=== PATIENT | male | born 1960 | race Caucasian/White ===

== ENCOUNTER 2021-05-18 08:55 | Inpatient (IN) | payer OTHER, SELFPAY ==
[2021-05-18] VITALS (14 sets, daily range): BP systolic 115–148; BP diastolic 82–102; PULSE 99–126; RESP 19–45; TEMP 36.6–36.8; O2SAT 85–96; BMI 31.1
--- NOTE | 2021-05-18 09:05 | XR_ITS ---
WS: [id number] Portable AP upright chest, 05/18/2021 Clinical Data: dyspnea/cough Comparison: None. Findings: Bilateral patchy opacities are seen in the lungs consistent with diffuse pneumonia. The hea rt is normal. No pneumothorax is present. No nodules, masses or effusions are noted. Monitor leads ar e on the chest wall. XR/XR chest 1V portable [id number] Impression: Bilateral patchy pulmonary opacities consistent with diffuse pneumonia.
--- NOTE | 2021-05-18 09:08 | W.ED.SOB ---
HPI - SOB/Dyspnea General: Chief Complaint: Shortness of Breath/Dyspnea Stated Complaint: lying in floor/ respiratory distress Time Seen by Provider: 05/18/21 09:04 History of Present Illness: HPI Narrative: 60-year-old male presents to the emergency room via EMS. Patient is in acute respiratory failure his sats on 15 L by nonrebreather when he first arrived. 85% they did improve shortly after he got here up to 90. He is tachycardic and tachypneic. He was found naked on the floor which is unlike him. He was confused and disoriented it is unknown how long he been down on the floor. 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 His sister who he lives with as well as his sister who works here are both stating they want him to be a no code. When asked the patient stated he did not want to be intubated. MD elicited complaint: shortness of breath Pertinent past history: COPD Onset (ago): day(s) Timing: constant Severity: severe Exacerbating factors: exertion and coughing Relieving factors: oxygen and rest Known history of: COPD Associated symptoms: Reports cough; Deny abdominal pain, chest congestion, chest pain, diaphoresis, dizziness, extremity pain, fever(s), hemoptysis, lightheadedness, myalgias, nausea, orthopnea, palpitations, paresthesias, polydipsia, polyuria, rash, sense of impending doom, syncope or vomiting Treatment prior to arrival: oxygen Review of Systems Const: Denies: fever(s) or diaphoresis ENMT: Denies: nasal discharge or nasal congestion Card: Denies: chest pain, palpitations, lightheadedness, syncope or orthopnea Resp: Denies: hemoptysis or chest congestion GI: Denies: abdominal pain, nausea or vomiting : Denies: flank pain, dysuria, urinary frequency or urinary urgency Musc: Denies: extremity pain Neuro: Denies: dizziness Endo: Denies: polyuria or polydipsia PFS ED PFSH: Medical History (Updated 05/20/21 @ 07:57 by Fernandez Ayers DO) COPD (chronic obstructive pulmonary disease) Physical Exam Const: GENERAL APPEARANCE: cooperative ORIENTATION/CONSCIOUSNESS: Yes awake HENMT: COMMON NORMALS: normocephalic, atraumatic and hearing grossly normal bilaterally HEAD & SCALP: normocephalic and atraumatic Neck/C-Spine: COMMON NORMALS: no JVD Resp: EFFORT & INSPECTION: No able to speak in complete sentences, Yes abnormal respiratory pattern, Yes tachypneic, Yes pursed lip breathing, Yes labored and Yes audible wheezes AUSCULTATION: rhonchi and wheezes Cardio: COMMON NORMALS: no JVD, regular rhythm and No murmurs present (Cardio) RATE: tachycardic RHYTHM: regular rhythm GI: COMMON NORMALS: Soft to palpation and No hepatosplenomegaly present AUSCULTATION: Yes normoactive bowel sounds PALPATION: Yes Soft to palpation, No Tenderness to palpation present (GI), No Guarding due to palpation present (GI) and Yes No hepatosplenomegaly present Extremity: COMMON NORMALS: normal to inspection, capillary refill normal, no clubbing, cyanosis or edema, no calf tenderness and no pedal edema Skin: COMMON NORMALS: no rashes or lesions noted GENERAL SKIN EXAM: no rashes or lesions noted Course Vital Signs: Vital signs: Vital Signs Temperature 97.8 F 05/20/21 07:45 Pulse Rate 112 H 05/20/21 07:45 Respiratory Rate 16 05/20/21 07:45 Blood Pressure 135/80 05/20/21 07:45 Pulse Oximetry 90 05/20/21 07:45 MDM - SOB/Dyspnea MDM Narrative: Medical decision making narrative: Patient has acute respiratory failure as well as acute kidney injury. This due to COVID-19 he does not want to be intubated he is on BiPAP Pap initially. We will go ahead and admit him discussed with the hospitalist orders are written Lab Data: Labs: Lab Results 05/18/21 05/18/21 05/18/21 Range/Units 09:09 09:09 09:09 WBC 17.7 H (4.0-10.0) 10^3/ uL RBC 5.85 H (4.1-5.3) 10^6/u L Hgb 18.1 H (11.7-16.6) g/dL Hct 56.5 H (42.0-52.0) % MCV 96.6 H (80-94) fL MCH 30.9 (28.0-34.0) pg MCHC 32.0 (30.0-36.0) g/dL RDW 13.0 (12.1-15.1) % Plt Count 316 (130-400) 10^3/c mm MPV 10.7 H (7.4-10.4) fL Neut % (Auto) 91.9 % Lymph % (Auto) 3.8 % [place] % (Auto) 3.3 % Eos % (Auto) 0.0 % Baso % (Auto) 0.2 % Neut # (Auto) 16.24 H (1.8-7.7) 10^3/u L Lymph # (Auto) 0.7 L (0.8-4.8) 10^3/u L [place] # (Auto) 0.6 (0.2-0.9) 10^3/u L Eos # (Auto) 0.0 (0.0-0.8) 10^3/u L Baso # (Auto) 0.0 (0.0-0.1) 10^3/u L Nucleated RBC % (a uto) 0 % Nucleated RBCs # 0.0 /100WBC Specimen Type Arterial Sample Site Radial, right ABG pH 7.48 H (7.35-7.45) ABG pCO2 25.6 L (35-45) mmHg ABG pO2 59.5 L (80.0-100.0) mmH g ABG HCO3 18.9 L (22-26) mmol/L ABG O2 Saturation 89.3 ABG Base Excess -2.5 L (-2.0-2.0) mmol/ L Abdifatah Test Pos A-a O2 Gradient 7.6 (5-10) mmHg Hematocrit 56.3 H (42-52) % Hgb O2 Saturation 87.9 L (95-100) % Carboxyhemoglobin 0.8 (0.4-20.1) %THgb Methemoglobin 0.8 (0.4-1.5) % Total Hemoglobin 18.4 H (14-18) g/dL Sodium 153.0 H (131-143) mmol/L Potassium 3.9 (3.5-5.0) mmol/L Glucose 139.0 H (70-115) mg/dL Ionized Calcium 1.1 (1.1-1.4) mmol/L O2 Delivery Device Nrb O2 Liters/Min 15.0 % [employer] ID Havar Chloride (98-107) mmol/L Carbon Dioxide (22-29) mmol/L Anion Gap (5-19) BUN (8-23) mg/dL Creatinine (0.7-1.2) mg/dL GFR Calculation (90-130) mL/min Calculated Osmolal ity (285-295) mOsm/k g Lactic Acid 3.4 H (0.5-2.2) mmol/L Calcium (8.5-10.5) mg/dL Magnesium (1.7-2.3) mg/dL Total Bilirubin (0.15-1.2) mg/dL AST (0-40) U/L ALT (0-41) U/L Alkaline Phosphata se (40-130) IU/L Creatine Kinase (39-308) U/L Total Protein (6.6-8.7) g/dL Albumin (3.5-5.2) g/dL Globulin (1.3-4.6) g/dL Lipase (13-60) U/L Nasal/Oral COVID-1 9 PCR SARS-CoV-2 Ag (Rap id) (Negative) 05/18/21 05/18/21 05/18/21 Range/Units 09:09 09:27 09:27 WBC (4.0-10.0) 10^3/ uL RBC (4.1-5.3) 10^6/u L Hgb (11.7-16.6) g/dL Hct (42.0-52.0) % MCV (80-94) fL MCH (28.0-34.0) pg MCHC (30.0-36.0) g/dL RDW (12.1-15.1) % Plt Count (130-400) 10^3/c mm MPV (7.4-10.4) fL Neut % (Auto) % Lymph % (Auto) % [place] % (Auto) % Eos % (Auto) % Baso % (Auto) % Neut # (Auto) (1.8-7.7) 10^3/u L Lymph # (Auto) (0.8-4.8) 10^3/u L [place] # (Auto) (0.2-0.9) 10^3/u L Eos # (Auto) (0.0-0.8) 10^3/u L Baso # (Auto) (0.0-0.1) 10^3/u L Nucleated RBC % (a uto) % Nucleated RBCs # /100WBC Specimen Type Sample Site ABG pH (7.35-7.45) ABG pCO2 (35-45) mmHg ABG pO2 (80.0-100.0) mmH g ABG HCO3 (22-26) mmol/L ABG O2 Saturation ABG Base Excess (-2.0-2.0) mmol/ L Abdifatah Test A-a O2 Gradient (5-10) mmHg Hematocrit (42-52) % Hgb O2 Saturation (95-100) % Carboxyhemoglobin (0.4-20.1) %THgb Methemoglobin (0.4-1.5) % Total Hemoglobin (14-18) g/dL Sodium 147 H (131-143) mmol/L Potassium 4.4 (3.5-5.0) mmol/L Glucose 134 H (70-115) mg/dL Ionized Calcium (1.1-1.4) mmol/L O2 Delivery Device O2 Liters/Min % [employer] ID Chloride 108 H (98-107) mmol/L Carbon Dioxide 19 L (22-29) mmol/L Anion Gap 24.4 H (5-19) BUN 52 H (8-23) mg/dL Creatinine 1.6 H (0.7-1.2) mg/dL GFR Calculation 44.3 L (90-130) mL/min Calculated Osmolal ity 320 H (285-295) mOsm/k g Lactic Acid (0.5-2.2) mmol/L Calcium 8.0 L (8.5-10.5) mg/dL Magnesium 3.6 H (1.7-2.3) mg/dL Total Bilirubin 0.8 (0.15-1.2) mg/dL AST 64 H (0-40) U/L ALT 55 H (0-41) U/L Alkaline Phosphata se 61 (40-130) IU/L Creatine Kinase 633 H* (39-308) U/L Total Protein 6.5 L (6.6-8.7) g/dL Albumin 3.5 (3.5-5.2) g/dL Globulin 3.0 (1.3-4.6) g/dL Lipase 105 H (13-60) U/L Nasal/Oral COVID-1 9 PCR Detected H SARS-CoV-2 Ag (Rap id) Positive H (Negative) Discharge Plan Discharge Patient Disposition: Admitted As Inpatient Admit Provider: Ross Hawk Clinical Impression: Pneumonia due to COVID-19 virus, COPD (chronic obstructive pulmonary disease), Hypernatremia, Acute kidney injury superimposed on chronic kidney disease, Metabolic acidosis, Rhabdomyolysis, Respiratory failure with hypoxia Condition: Stable Coding Level of Care Code ED Truck Packer for Chg Fwd Exam Comprehensive
[2021-05-18 09:19] LABS: ABG PCO2 25.6 mmHg (35-45); ABG PH Result 7.48 (7.35-7.45); Alveolar-Arterial Oxygen Gradi 7.6 mmHg (5-10); Arterial Blood Gas Hematocrit 56.3 % (42-52); Base Excess ABG -2.5 mmol/L (-2.0-2.0); Blood Gas Allen Test Pos; Blood Gas Sample Site Radial, right; Blood Gas Sample Type Arterial; Carboxyhemoglobin 0.8 %THgb (0.4-20.1); HCO3 ABG 18.9 mmol/L (22-26); HGB O2 Sat 87.9 % (95-100); Ionized Calcium Level - ABG 1.1 mmol/L (1.1-1.4); Methemoglobin 0.8 % (0.4-1.5); Oxygen Device NRB; Oxygen Saturation ABG 89.3; PO2 ABG 59.5 mmHg (80.0-100.0); Potassium Level - ABG 3.9 mmol/L (3.5-5.0); Total Hemoglobin 18.4 g/dL (14-18)
[2021-05-18 09:25] LABS: Basophils % 0.2 %; Hematocrit 56.5 % (42.0-52.0); Hemoglobin 18.1 g/dL (11.7-16.6); Lymphocytes # 0.7 10^3/uL (0.8-4.8); Lymphocytes % 3.8 %; Mean Corpuscular Hemoglobin 30.9 pg (28.0-34.0); Mean Corpuscular Volume 96.6 fL (80-94); Mean Platelet Volume 10.7 fL (7.4-10.4); Monocytes # 0.6 10^3/uL (0.2-0.9); Monocytes % 3.3 %; Neutrophils # 16.24 10^3/uL (1.8-7.7); Neutrophils % 91.9 %; Nucleated Red Blood Cells % 0 %; Platelet Count 316 10^3/cmm (130-400); Red Blood Count 5.85 10^6/uL (4.1-5.3); White Blood Count 17.7 10^3/uL (4.0-10.0)
[2021-05-18 09:41] LABS: Lactic Sepsis W/Reflex 3.4 mmol/L (0.5-2.2)
[2021-05-18 10:05] LABS: SARS Covid-2 Antigen Positive (Negative)
--- NOTE | 2021-05-18 10:10 | CT_ITS ---
WS: [id number] CTA OF THE CHEST WITH PULMONARY EMBOLISM PROTOCOL TECHNIQUE: High-resolution contrast enhanced CTA of the chest with coronal and sagittal reformatted i mages with pulmonary embolism protocol. MIP images are also reviewed. CLINICAL INFORMATION: COvid/hypoxia COMPARISON: None. DLP: 612.[address] scans at [facility] use at least one of these dose optimization techniques: automat ed exposure control; mA and/or kV adjustment per patient size (includes targeted exams where dose is matched to clinical indication); or iterative reconstruction. FINDINGS: Somewhat limited examination due to breathing artifact. Advanced chronic emphysematous changes with hazy bilateral groundglass infiltrates suspicious for COV ID 19 pneumonia. No focal consolidation pleural fluid. Proximal main pulmonary arteries are normal. Proximal segmental pulmonary arteries appear normal. Sub segmental pulmonary arteries not well evaluated due to breathing artifact. No visualized proximal pul monary embolus. Normal caliber thoracic aorta. No mediastinal or hilar lymphadenopathy. Small esophageal hernia. Adre nal glands are normal. CT/CT angio chest PE protcl [id number] IMPRESSION: Images degraded due to breathing artifact 1. No evidence of proximal pulmonary embolus considering limitations. Distal p ulmonary arteries not well evaluated due to breathing artifact. 2. Diffuse bilateral hazy groundglass infiltrates suspicious for Covid pneumon ia. 3. Advanced chronic emphysematous changes. 4. No focal consolidation.
[2021-05-18] MEDS: levofloxacin-dextrose 5 % 750 MG/150 ML PREMIX 100 MG IV (10:12)
[2021-05-18 10:28] LABS: Alanine Aminotransferase 55 U/L (0-41); Albumin Level 3.5 g/dL (3.5-5.2); Alkaline Phosphatase 61 IU/L (40-130); Anion Gap 24.4 (5-19); Aspartate Amino Transferase 64 U/L (0-40); Blood Urea Nitrogen 52 mg/dL (8-23); Carbon Dioxide 19 mmol/L (22-29); Chloride 108 mmol/L (98-107); Glomerular Filtration Rate 44.3 mL/min (90-130); Glucose 134 mg/dL (65-115); Lipase 105 U/L (13-60); Magnesium 3.6 mg/dL (1.7-2.3); Osmolality Calculated 320 mOsm/kg (285-295); Potassium 4.4 mmol/L (3.5-5.1); Sodium 147 mmol/L (136-145); Total Bilirubin 0.8 mg/dL (0.15-1.2); Total Protein 6.5 g/dL (6.6-8.7)
[2021-05-18 10:30] LABS: Creatine Phosphokinase 633 U/L (39-308)
[2021-05-18] MEDS: iodixanol 320 mg/mL 100mL Btl IV (10:58)
[2021-05-18 11:07] LABS: Reflex Lactate Order REFLEX LACTIC ORDERD
[2021-05-18 14:08] LABS: Protein Urine 1+ (Negative); Urine Appearance Clear (CLEAR); Urine Color Dark Yellow (Yellow); pH Urine 5 (5-7)
[2021-05-18 14:09] LABS: Add Urine Microscopic? YES; Amorphous Sediment Urine 2+ /hpf; Bacteria Urine 1+ /hpf; Bilirubin Urine Neg (Negative); Blood Urine 2+ (Negative); Coarse Granular Casts Urine 15-25 /lpf; Glucose Urine UA Norm (Normal); Hyaline Casts Urine 0-4 /lpf; Ketones Urine Negative (Negative); Leukocyte Esterase Urine Negative (Negative); Mucus Urine 1+ /hpf; Nitrate Urine Negative (Negative); RBC Urine 0-4 /hpf (0-2); Urobilinogen Urine 1 mg/dL (Negative); WBC Urine 0-4 /hpf (0-5)
[2021-05-18 14:10] LABS: Add Urine Culture? No
--- NOTE | 2021-05-18 14:11 | PM.HP ---
Providers/Chief Complaint Admitting Physician: Ross Hawk MD Chief Complaint: lying in floor/ respiratory distress History of Present Illness Logan Wei is a 60 year old male with pmh of COPD was brought in by by the EMS in severe respiratory distress he was found lying on the floor in his house.When the EMS arrived at the scene he was saturating 64 % on Room air, he was confused and disoriented.Upon arrival in the ER he was worked up for above mention complain. Imaging Studies: CTA chest : NO P/E. Diffuse bilateral hazy ground glass infiltrates. Advanced chronic emphysematous changes. Pertinent labs: WBC : 17.7 T , H/H :18/56 PLT : 316 , Na: 147, k : 4.4 , BUN/SCR : 52/1.6 , Lactic acid: 3.4 , M.4, CPK:633 ,Lipase :105 ABG: Ph: 7.48,PCO2: 25, PO2: 59 FIO2: NRM 15LS Review of Systems Const: Denies: fever(s) Card: Denies: palpitations or edema Resp: Denies: pain on inspiration GI: Denies: abdominal pain, nausea or vomiting : Denies: difficulty urinating Musc: Denies: back pain, extremity pain or extremity swelling Medications/Allergies Home Medications Medication Instructions Recorded Confirmed Last Taken Type No Known Home Medications 05/18/21 05/18/21 Unknown History Allergies Allergy/AdvReac Type Severity Reaction Status Date / Time No Known Allergies Allergy Verified 05/18/21 09:06 PFSH Acute PFSH: Medical History (Updated 05/18/21 @ 22:23 by Ross Hawk MD) COPD (chronic obstructive pulmonary disease) Vitals/I&O/Wt Last Vital Signs Temp 98.2 F 05/18/21 08:59 Pulse 113 H 05/18/21 13:30 Resp 28 H 05/18/21 13:21 BP 148/102 05/18/21 13:21 Pulse Ox 93 05/18/21 13:30 05/17/21 05/18/21 05/18/21 22:59 06:59 14:59 Intake Total 150 / 150 Balance 150 / 150 Weight last 48 hrs Weight 104.326 kg Physical Exam Const: COMMON NORMALS: patient oriented x3 HENMT: COMMON NORMALS: normocephalic and atraumatic HEAD & SCALP: normocephalic and atraumatic Resp: OTHER: Diminished air entry b/l Cardio: COMMON NORMALS: regular rate, regular rhythm, S1 normal heart sound present, S2 normal heart sound present, No gallops present (Cardio), No murmurs present (Cardio), No rub (Cardio) and Peripheral pulses 2+ throughout RATE: regular rate RHYTHM: regular rhythm HEART SOUNDS: S1 normal heart sound present and S2 normal heart sound present PERIPHERAL PULSES: Peripheral pulses 2+ throughout GI: COMMON NORMALS: Normal to inspection, nondistended, normoactive bowel sounds present, Soft to palpation, non-tender, No hepatosplenomegaly present and no masses AUSCULTATION: Yes normoactive bowel sounds PALPATION: Yes Soft to palpation and Yes No hepatosplenomegaly present RECTAL EXAM: Yes deferred Extremity: COMMON NORMALS: no clubbing, cyanosis or edema and no pedal edema Neuro: COMMON NORMALS: patient oriented x3 Urinary Catheter Management^: Bradley: Cath Placed During This Visit: yes Urinary Catheter Date of Insertion: 05/18/21 Urinary Catheter Time of Insertion: 13:33 Data : 05/18/21 09:09 05/18/21 09:09 A&P Assessment and plan (1) Respiratory failure with hypoxia: Ac hypoxic r/f 2/2 COVID PNA On COVID Protocol. Status: Acute (2) Pneumonia due to COVID-19 virus: Status: Acute (3) Acute kidney injury superimposed on chronic kidney disease: Pre renal NOREEN ON CKD 2/2 Severe dehydration . Admission SCR: 1.6 Baseline SCR is unknown I.V Hydration Monitor BMP Urine electrolytes Avoid Nephrotoxics Status: Acute (4) Elevated CPK: I.V Hydration Monitor CPK Status: Acute (5) Metabolic acidosis: Status: Acute (6) Elevated lactic acid level: Status: Acute (7) COPD (chronic obstructive pulmonary disease): Status: Acute (8) Dehydration: Status: Acute (9) Hypermagnesemia: Status: Acute Additional A&P Information Code Status :AND DVT PPX: lovenox 40 mg sc daily Attestations Medical Necessity Statement*: Patient needs to be in hospital for the management of Severe COVID PNA.Anticipated LOS Greater then 2 Midnights. Coding Level of Care Code Acute Health Services Coordinator for Alli Alejandro Diagnoses Respiratory failure with hypoxia J96.91 Pneumonia due to COVID-19 virus U07.1; J12.82 Acute kidney injury superimposed on chronic kidney disease N17.9; N18.9 Elevated CPK R74.8 Metabolic acidosis E87.2 Elevated lactic acid level R79.89 COPD (chronic obstructive pulmonary disease) J44.9 Dehydration E86.0 Hypermagnesemia E83.41
[2021-05-18] MEDS: remdesivir 200 MG in sodium chloride 0.9% (100 ml) 100 ML 100 MG IV (14:36)
[2021-05-18] MEDS: ipratropium-albuterol 3 mL Neb INHALATION ×2 (15:45→21:19)
[2021-05-18] MEDS: cefTRIAXone 1,000 MG in sodium chloride 0.9% (plus) 50 ML 100 MG IV (16:18)
[2021-05-18] MEDS: enoxaparin 40 mg/0.4 mL Syringe SUBCUT (16:19)
[2021-05-18] MEDS: azithromycin 500 MG in sodium chloride 0.9% 250 ML 250 MG IV (17:12)
--- NOTE | 2021-05-18 18:15 | PC.NURSE ---
shift summary pt is pleasantly confused, he is aware of name and date of , but is not sure of what hospital he is in, how he got here, why he is here, or the date. he is hard to understand at times, and has taken bipap off a couple of times and when this nurse asks why he is taking it off he states he does not know. pt states he has no family, friends, or relatives that live close anywhere and that he lives alone. pt also states he does not remember having any issues breathing, or being sick at all before coming to the hospital. pt has been very compliant, and pleasant this shift. No BM at this time, and is unsure when his last BM was. pt urine output has been good this shift with approximately 750 clear dark yellow urine.
[2021-05-18] MEDS: budesonide 0.5 mg/2 mL Neb INHALATION (21:19)
[2021-05-19] VITALS (25 sets, daily range): BP systolic 118–138; BP diastolic 73–88; PULSE 89–123; RESP 18–34; TEMP 36.5–36.7; O2SAT 73–95
[2021-05-19] MEDS: ipratropium-albuterol 3 mL Neb INHALATION ×6 (00:56→20:47)
[2021-05-19 06:25] LABS: Basophils % 0.1 %; Hematocrit 46.9 % (42.0-52.0); Hemoglobin 14.8 g/dL (11.7-16.6); Lymphocytes # 0.4 10^3/uL (0.8-4.8); Lymphocytes % 2.8 %; Mean Corpuscular HGB Conc 31.6 g/dL (30.0-36.0); Mean Corpuscular Hemoglobin 30.6 pg (28.0-34.0); Mean Corpuscular Volume 96.9 fL (80-94); Monocytes # 0.5 10^3/uL (0.2-0.9); Monocytes % 3.1 %; Neutrophils # 13.51 10^3/uL (1.8-7.7); Neutrophils % 93.2 %; Nucleated Red Blood Cells % 0 %; Platelet Count 330 10^3/cmm (130-400); Red Blood Count 4.84 10^6/uL (4.1-5.3); Red Cell Distribution Width 13.2 % (12.1-15.1); White Blood Count 14.5 10^3/uL (4.0-10.0)
[2021-05-19 07:08] LABS: Procalcitonin 0.39 ng/mL (0-0.5)
[2021-05-19 07:12] LABS: INR 1.38 (0.8-1.2)
[2021-05-19 07:13] LABS: Fibrinogen 596 mg/dL (174-498)
[2021-05-19 07:19] LABS: Alanine Aminotransferase 44 U/L (0-41); Albumin Level 2.6 g/dL (3.5-5.2); Alkaline Phosphatase 50 IU/L (40-130); Anion Gap 20.5 (5-19); Aspartate Amino Transferase 42 U/L (0-40); Blood Urea Nitrogen 34 mg/dL (8-23); Calcium 7.4 mg/dL (8.5-10.5); Carbon Dioxide 18 mmol/L (22-29); Chloride 117 mmol/L (98-107); Globulin 3.1 g/dL (1.3-4.6); Glomerular Filtration Rate 61.8 mL/min (90-130); Glucose 169 mg/dL (65-115); Osmolality Calculated 326 mOsm/kg (285-295); Potassium 3.5 mmol/L (3.5-5.1); Sodium 152 mmol/L (136-145); Total Bilirubin 0.4 mg/dL (0.15-1.2); Total Protein 5.7 g/dL (6.6-8.7)
[2021-05-19 07:20] LABS: D Dimer 1.51 ug/mIFEU (0-0.59)
[2021-05-19 07:55] LABS: Ferritin 2429 ng/mL (30-400)
[2021-05-19] MEDS: budesonide 0.5 mg/2 mL Neb INHALATION ×2 (08:36→20:47)
[2021-05-19] MEDS: dextrose 5% 1,000 ML 75 ML IV ×2 (09:10→22:55)
--- NOTE | 2021-05-19 11:21 | PM.PN ---
Subjective Subjective: Interval history: Patient was seen and examined this morning, overall doing better, currently saturating well on heated high flow oxygen through nasal cannula, serum creatinine is improving, Medications: Reviewed: Yes Vitals/I&O/Wt Last Vital Signs Temp 97.8 F 05/19/21 08:00 Pulse 119 H 05/19/21 09:36 Resp 32 H 05/19/21 09:36 BP 137/88 05/19/21 08:00 Pulse Ox 91 05/19/21 09:36 05/18/21 05/19/21 05/19/21 22:59 06:59 14:59 Intake Total 3529.78 / 3679.78 360 / 4039.78 Output Total 1070 / 1070 Balance 3529.78 / 3679.78 -710 / 2969.78 Weight last 48 hrs Weight 104.326 kg Physical Exam Const: COMMON NORMALS: patient oriented x3 HENMT: COMMON NORMALS: normocephalic and atraumatic HEAD & SCALP: normocephalic and atraumatic Resp: OTHER: Diminished air entry b/l Cardio: COMMON NORMALS: regular rate, regular rhythm, S1 normal heart sound present, S2 normal heart sound present, No gallops present (Cardio), No murmurs present (Cardio), No rub (Cardio) and Peripheral pulses 2+ throughout RATE: regular rate RHYTHM: regular rhythm HEART SOUNDS: S1 normal heart sound present and S2 normal heart sound present PERIPHERAL PULSES: Peripheral pulses 2+ throughout GI: COMMON NORMALS: Normal to inspection, nondistended, normoactive bowel sounds present, Soft to palpation, non-tender, No hepatosplenomegaly present and no masses AUSCULTATION: Yes normoactive bowel sounds PALPATION: Yes Soft to palpation and Yes No hepatosplenomegaly present RECTAL EXAM: Yes deferred Extremity: COMMON NORMALS: no clubbing, cyanosis or edema and no pedal edema Neuro: COMMON NORMALS: patient oriented x3 Urinary Catheter Management^: Bradley: Cath Placed During This Visit: yes Reason for Continuing Indwelling Catheter: Other Urinary Catheter Date of Insertion: 05/18/21 Urinary Catheter Time of Insertion: 13:33 Data : 05/19/21 06:05 05/19/21 06:05 Micro: Microbiology 05/18/21 15:51 Blood Culture - Preliminary Blood SPECIMEN COLLECTED 05/18/21 15:44 Blood Culture - Preliminary Blood SPECIMEN COLLECTED A&P Assessment and plan (1) Respiratory failure with hypoxia: Ac hypoxic r/f 2/2 COVID PNA On COVID Protocol. Status: Acute (2) Pneumonia due to COVID-19 virus: Status: Acute (3) Acute kidney injury superimposed on chronic kidney disease: Pre renal NOREEN ON CKD 2/2 Severe dehydration . Admission SCR: 1.6 Baseline SCR is unknown I.V Hydration Monitor BMP Urine electrolytes Avoid Nephrotoxics Status: Acute (4) Hypernatremia: Hypovolemic hypernatremia: D5 water at 75 cc an hour Monitor BMP Status: Acute (5) Elevated CPK: I.V Hydration Monitor CPK Status: Acute (6) Metabolic acidosis: Status: Acute (7) Elevated lactic acid level: Likely secondary dehydration resolved. Status: Acute (8) COPD (chronic obstructive pulmonary disease): Status: Acute (9) Dehydration: Status: Acute (10) Hypermagnesemia: Follow serum magnesium Status: Acute (11) Tachycardia: Sinus tachycardia Continue telemetry monitoring Status: Acute Additional A&P Information Code Status :AND DVT PPX: lovenox 40 mg sc daily Attestations Medical Necessity Statement*: Patient needs to be in the hospital for the management of respiratory failure secondary to Covid pneumonia. Coding Level of Care Code Acute Saturation Equipment Operator for [facility] Fwd Diagnoses Respiratory failure with hypoxia J96.91 Pneumonia due to COVID-19 virus U07.1; J12.82 Acute kidney injury superimposed on chronic kidney disease N17.9; N18.9 Hypernatremia E87.0 Elevated CPK R74.8 Metabolic acidosis E87.2 Elevated lactic acid level R79.89 COPD (chronic obstructive pulmonary disease) J44.9 Dehydration E86.0 Hypermagnesemia E83.41 Tachycardia R00.0
[2021-05-19] MEDS: cefTRIAXone 1,000 MG in sodium chloride 0.9% (plus) 50 ML 100 MG IV (14:11)
[2021-05-19] MEDS: dexamethasone 4 mg/mL INJ 6 MG IVP (14:12)
[2021-05-19] MEDS: enoxaparin 40 mg/0.4 mL Syringe SUBCUT (14:12)
[2021-05-19] MEDS: azithromycin 500 MG in sodium chloride 0.9% 250 ML 250 MG IV (15:19)
[2021-05-19 15:48] LABS: NT Pro B Type Natriuretic Pept 215 pg/mL (0-125)
--- NOTE | 2021-05-19 17:04 | PC.RESP ---
PULMONARY REHAB INFORMATION SENT TO PATIENT.
[2021-05-19] MEDS: remdesivir 100 MG in sodium chloride 0.9% (100 ml) 100 ML IV (17:12)
[2021-05-19 18:00] LABS: Coronavirus Test Green County Detected
--- NOTE | 2021-05-19 18:09 | ECG_ITS ---
[facility] Test Date: 2021-05-20 Pat Name: Logan Wei Department: Room: 251 Gender: Male Vp Strategy: : 1960 Requested By: Ross Hawk Order Number: [id number] Douglas MD: Ania Barrett M.D. Measurements Intervals [place] Rate: 105 P: RI: QRS: -44 QRSD: 98 T: 107 QT: 371 QTc: 492 Interpretive Statements SINUS TACHYCARDIA NONSPECIFIC ST & T-WAVE ABNORMALITY No previous ECG available for comparison Electronically Signed On 05-22-2021 22:33:01 CDT by Ania Barrett M.D. [id number]
[2021-05-19] MEDS: FUROsemide 10 mg/mL SDV 4mL 40 MG IVP (18:34)
[2021-05-20] VITALS (56 sets, daily range): BP systolic 78–152; BP diastolic 53–89; PULSE 88–124; RESP 16–61; TEMP 36.5–37.2; O2SAT 79–96
[2021-05-20] MEDS: ipratropium-albuterol 3 mL Neb INHALATION ×5 (00:01→20:30)
[2021-05-20 08:09] LABS: Basophils % 0.1 %; Hematocrit 49.4 % (42.0-52.0); Hemoglobin 15.6 g/dL (11.7-16.6); Lymphocytes # 0.6 10^3/uL (0.8-4.8); Lymphocytes % 4.1 %; Mean Corpuscular HGB Conc 31.6 g/dL (30.0-36.0); Mean Platelet Volume 10.2 fL (7.4-10.4); Monocytes # 0.3 10^3/uL (0.2-0.9); Monocytes % 1.7 %; Neutrophils # 13.74 10^3/uL (1.8-7.7); Neutrophils % 93.2 %; Nucleated Red Blood Cells % 0 %; Platelet Count 273 10^3/cmm (130-400); Red Blood Count 5.04 10^6/uL (4.1-5.3); Red Cell Distribution Width 13.4 % (12.1-15.1); White Blood Count 14.8 10^3/uL (4.0-10.0)
[2021-05-20] MEDS: budesonide 0.5 mg/2 mL Neb INHALATION ×2 (08:11→20:30)
[2021-05-20 08:57] LABS: D Dimer 4.67 ug/mIFEU (0-0.59)
[2021-05-20 09:00] LABS: Alanine Aminotransferase 42 U/L (0-41); Albumin Level 3.1 g/dL (3.5-5.2); Alkaline Phosphatase 52 IU/L (40-130); Anion Gap 17.7 (5-19); Aspartate Amino Transferase 38 U/L (0-40); Blood Urea Nitrogen 27 mg/dL (8-23); C Reactive Protein 37.1 mg/L (0.0-4.9); Calcium 7.4 mg/dL (8.5-10.5); Carbon Dioxide 23 mmol/L (22-29); Chloride 115 mmol/L (98-107); Creatinine Clr Calc Pharmacy 98.1004; Globulin 2.3 g/dL (1.3-4.6); Glomerular Filtration Rate 76.2 mL/min (90-130); Glucose 104 mg/dL (65-115); Osmolality Calculated 319 mOsm/kg (285-295); Potassium 3.7 mmol/L (3.5-5.1); Sodium 152 mmol/L (136-145); Total Bilirubin 0.6 mg/dL (0.15-1.2); Total Protein 5.4 g/dL (6.6-8.7)
[2021-05-20 09:21] LABS: Fibrinogen 516 mg/dL (174-498)
[2021-05-20 10:06] LABS: Ferritin 2190 ng/mL (30-400)
[2021-05-20 11:13] LABS: Magnesium 2.6 mg/dL (1.7-2.3)
[2021-05-20 11:17] LABS: Creatine Phosphokinase 387 U/L (39-308)
[2021-05-20] MEDS: LORazepam 2 mg/mL INJ 1 mL IVP ×3 (11:20→20:48)
[2021-05-20] MEDS: dextrose 5% 1,000 ML 75 ML IV (11:48)
--- NOTE | 2021-05-20 12:37 | USR_ITS ---
PROCEDURE INFORMATION: Exam: US Abdomen Complete Exam date and time: 05/20/2021 12:37 PM Age: 60 years old Clinical indication: Abdominal pain TECHNIQUE: Imaging protocol: Real-time ultrasound of the abdomen with image documentation. COMPARISON: CT angio chest PE protcl [id number] 05/18/2021 10:54 AM FINDINGS: Liver: Normal. No mass. Gallbladder: Intraluminal sludge within the gallbladder. No shadowing gallstones. No gallbladder wall thickening measuring 2 mm. No gallbladder distention or pericholecystic fluid. Common bile duct: Common bile duct is normal in diameter measuring 4 mm. Pancreas: Visualized pancreas is unremarkable. Right kidney: Normal. No mass. No hydronephrosis. Left kidney: Limited evaluation of the left kidney given overlying bowel gas. Spleen: Normal. No splenomegaly. Aorta: Normal. No aneurysm. Inferior vena cava: Normal. US/US abdomen complete* [id number] IMPRESSION: Intraluminal sludge within the gallbladder. No evidence of cholelithiasis or acute cholecystitis. No acute sonographic abnormalities in the abdomen.
--- NOTE | 2021-05-20 12:38 | XRR_ITS ---
PROCEDURE INFORMATION: Exam: XR Chest Exam date and time: 05/20/2021 12:38 PM Age: 60 years old Clinical indication: Shortness of breath; Additional info: SOB TECHNIQUE: Imaging protocol: XR of the chest. Views: 1 view. COMPARISON: CR XR chest 1V portable [id number] 05/18/2021 9:06 AM FINDINGS: Lungs: No significant change to the emphysema with peripheral ground-glass opacities throughout both lungs seen on prior CT examination. Pleural spaces: Unremarkable. No pleural effusion. No pneumothorax. Heart/Mediastinum: Unremarkable. No cardiomegaly. Bones/joints: Unremarkable. XR/XR chest 1V portable [id number] IMPRESSION: Similar appearance of diffuse peripheral ground-glass opacities throughout both lungs with advanced emphysematous change.
[2021-05-20] MEDS: morphine 4 mg/mL SDV 1 mL 2 MG IVP ×3 (12:40→20:48)
[2021-05-20] MEDS: FUROsemide 10 mg/mL SDV 2mL 20 MG IVP (12:40)
--- NOTE | 2021-05-20 14:37 | P.PN_ITS ---
Subjective Subjective: Interval history: Patient was seen and examined this morning,extremely agitated and confused, he is constantly pulling his Nc. Supplemental oxygen requirement has gone up. Medications: Reviewed: Yes Vitals/I&O/Wt Last Vital Signs Temp 98.9 F 05/20/21 11:55 Pulse 119 H 05/20/21 12:20 Resp 20 H 05/20/21 12:40 BP 120/80 05/20/21 11:55 Pulse Ox 86 L 05/20/21 12:20 05/19/21 05/20/21 05/20/21 22:59 06:59 14:59 Intake Total 1350 / 1400 400 / 1800 966.25 / 966.25 Output Total 550 / 550 1800 / 2350 Balance 800 / 850 -1400 / -550 966.25 / 966.25 Physical Exam Const: COMMON NORMALS: patient oriented x3 HENMT: COMMON NORMALS: normocephalic and atraumatic HEAD & SCALP: normocephalic and atraumatic Resp: OTHER: Diminished air entry b/l Cardio: COMMON NORMALS: regular rate, regular rhythm, S1 normal heart sound present, S2 normal heart sound present, No gallops present (Cardio), No murmurs present (Cardio), No rub (Cardio) and Peripheral pulses 2+ throughout RATE: regular rate RHYTHM: regular rhythm HEART SOUNDS: S1 normal heart sound present and S2 normal heart sound present PERIPHERAL PULSES: Peripheral pulses 2+ throughout GI: COMMON NORMALS: Normal to inspection, nondistended, normoactive bowel sounds present, Soft to palpation, non-tender, No hepatosplenomegaly present and no masses AUSCULTATION: Yes normoactive bowel sounds PALPATION: Yes Soft to palpation and Yes No hepatosplenomegaly present RECTAL EXAM: Yes deferred Extremity: COMMON NORMALS: no clubbing, cyanosis or edema and no pedal edema Neuro: COMMON NORMALS: patient oriented x3 Urinary Catheter Management^: Bradley: Cath Placed During This Visit: yes Reason for Continuing Indwelling Catheter: Other Urinary Catheter Date of Insertion: 05/18/21 Urinary Catheter Time of Insertion: 13:33 Data : 05/20/21 06:56 05/20/21 06:56 Micro: Microbiology 05/18/21 15:51 Blood Culture - Preliminary Blood NEGATIVE TO DATE 05/18/21 15:44 Blood Culture - Preliminary Blood NEGATIVE TO DATE A&P Assessment and plan (1) Acute respiratory distress syndrome (ARDS) due to severe acute respiratory syndrome coronavirus 2 (SARS-CoV-2): Acute hypoxic respiratory failure secondary to severe ARDS secondary to Covid pneumonia: CTA Negative for P/E . Xray chest :Worsening b/l air space disease. D-Dimer: ESR: CRP: Ferittin : Fibrinogen: Procalcitonin : Blood Culture: ABG : 5 days course of Remdesivir 200 mg IV x 1, then 100 mg IV daily x 4 day. Dexamaethasone 10 days course On Cef And Azithromycin S/P 1 Dose of Tocilizumab On Lovenox 40 mg sc daily Morphine 2 mg I.V Q4H PRN Ativan 2 mg I.V Q4H PRN On Precedex Drip On [facility]ONC as tolerated Status: Acute (2) Respiratory failure with hypoxia: Ac hypoxic r/f 2/2 COVID PNA On COVID Protocol. Status: Acute (3) Pneumonia due to COVID-19 virus: Status: Acute (4) Acute kidney injury superimposed on chronic kidney disease: Pre renal NOREEN ON CKD 2/2 Severe dehydration . Admission SCR: 1.6 Baseline SCR is unknown I.V Hydration Monitor BMP Urine electrolytes Avoid Nephrotoxics Status: Acute (5) Hypernatremia: Hypovolemic hypernatremia: D5 water at 75 cc an hour Monitor BMP Status: Acute (6) Elevated CPK: I.V Hydration Monitor CPK Status: Acute (7) Metabolic acidosis: Status: Acute (8) Elevated lactic acid level: Likely secondary dehydration resolved. Status: Acute (9) COPD (chronic obstructive pulmonary disease): Status: Acute (10) Dehydration: Status: Acute (11) Hypermagnesemia: Follow serum magnesium Status: Acute (12) Tachycardia: Sinus tachycardia Continue telemetry monitoring Status: Acute Additional A&P Information Code Status :AND DVT PPX: lovenox 40 mg sc daily Attestations Medical Necessity Statement*: Patient needs to be in hospital for the management of severe ARDS Coding Level of Care Code Acute Medical Advisor for [facility] F[facility] Diagnoses Acute respiratory distress syndrome (ARDS) due to severe acute respiratory syndrome coronavirus 2 (SARS-CoV-2) U07.1; J80 Respiratory failure with hypoxia J96.91 Pneumonia due to COVID-19 virus U07.1; J12.82 Acute kidney injury superimposed on chronic kidney disease N17.9; N18.9 Hypernatremia E87.0 Elevated CPK R74.8 Metabolic acidosis E87.2 Elevated lactic acid level R79.89 COPD (chronic obstructive pulmonary disease) J44.9 Dehydration E86.0 Hypermagnesemia E83.41 Tachycardia R00.0
--- NOTE | 2021-05-20 15:00 | PC.NURSE ---
Pt arrives to ICU from [facility] in severe resp. distress. Pt gasping, O2 sats 78-82%, and agitated. when O2 Probe on, pt remains on non-rebreather from transfer. ST noted on monitor. Pt is trying to pull IV lines and oxygen mask. Restraints retied. Sister, Cleve, at bedside attempting to calm. pt. MAtivan and Morphine admin for his comfort. Pt still agitated. Dr Hawk orders Precedex, it was started, Within 10 minutes p t started calming. RT reapplied Heat high flow NC 60L and 100%. O2 sats 87%, RT applied non-rebreather with HFNC. Pt calming, aggitation lessening, Heart rate down to 110. Will continue to monitor.
[2021-05-20] MEDS: dexmedetomidine 400 MCG in sodium chloride 0.9% (100 ml) 100 ML IV (15:10)
--- NOTE | 2021-05-20 16:00 | PC.NURSE ---
MAR other delays due to Pt's distress and transfer to ICU. Medications started when pt settled down and is resting with eyes closed with an improved oxygenation.
[2021-05-20] MEDS: cefTRIAXone 1,000 MG in sodium chloride 0.9% (plus) 50 ML 100 MG IV (16:06)
[2021-05-20] MEDS: dexamethasone 4 mg/mL INJ 6 MG IVP (16:15)
[2021-05-20] MEDS: enoxaparin 40 mg/0.4 mL Syringe SUBCUT (16:15)
[2021-05-20] MEDS: azithromycin 500 MG in sodium chloride 0.9% 250 ML 250 MG IV (16:33)
[2021-05-20] MEDS: remdesivir 100 MG in sodium chloride 0.9% (100 ml) 100 ML IV (18:30)
--- NOTE | 2021-05-20 18:58 | PC.NURSE ---
Pt was agitated and confused, continuously pulling off his oxygen and pulled out his IV. Pt was unable to calm. When oxygen was pulled his 02 stat would drop into the 60s. Dr placed order for soft restraints, was able to place new iv in left wrist. pt would continue to have spirts of agitation pulling off his oxygen. due to patients oxygen instability dr transferred patient to the icu.
--- NOTE | 2021-05-20 19:23 | PC.NUTR ---
Nutrition assessment completed d/t MST score of 4. Did not interview pt at this time d/t to covid+ as well as confusion noted. Spoke with nurse who did not feel any dietary changes would be helpful to promote po intake at this time except possibly finger foods. Will add to diet information. See RD assessment for further details.
--- NOTE | 2021-05-20 19:33 | PC.NURSE ---
Shift summary: Pt now resting with eyes closed. NO agitation noted at this time. Precedex started, now at 0.3mcg/kg/hr due to hypotension noted, SBP 78, but MAPs 64-66. Dr Hawk notified of soft BP around 1600, MAPs ok, just continue to monitor. Pt on heated high flow NC at 60L and 100%. O2 sats greater than 88%. Second PIID started, pt tolerated well. Tocilizumab, Remdesivir and dexamethasone admin this shift. Rocephin and Azithromycin IV admin too. Pt tolerated a position change at shift change, right side. Bed tilt control used to make position more lateral, pt tolerated for half hour. Report given to MAYRA Cantu
[2021-05-21] VITALS (110 sets, daily range): BP systolic 72–120; BP diastolic 53–89; PULSE 80–110; RESP 17–56; TEMP 36.5–36.9; O2SAT 82–99
[2021-05-21] MEDS: ipratropium-albuterol 3 mL Neb INHALATION ×6 (01:09→20:40)
[2021-05-21] MEDS: LORazepam 2 mg/mL INJ 1 mL IVP ×3 (01:15→20:49)
[2021-05-21] MEDS: morphine 4 mg/mL SDV 1 mL 2 MG IVP ×4 (03:40→20:50)
[2021-05-21] MEDS: dexmedetomidine 400 MCG in sodium chloride 0.9% (100 ml) 100 ML 13.56 MCG IV ×2 (04:25→15:12)
[2021-05-21 06:03] LABS: Alanine Aminotransferase 43 U/L (0-41); Albumin Level 2.6 g/dL (3.5-5.2); Alkaline Phosphatase 50 IU/L (40-130); Aspartate Amino Transferase 43 U/L (0-40); Blood Urea Nitrogen 37 mg/dL (8-23); C Reactive Protein 73.4 mg/L (0.0-4.9); Calcium 7.5 mg/dL (8.5-10.5); Carbon Dioxide 21 mmol/L (22-29); Chloride 115 mmol/L (98-107); Globulin 3.2 g/dL (1.3-4.6); Glomerular Filtration Rate 61.8 mL/min (90-130); Glucose 184 mg/dL (65-115); Osmolality Calculated 319 mOsm/kg (285-295); Sodium 148 mmol/L (136-145); Total Bilirubin 0.5 mg/dL (0.15-1.2); Total Protein 5.8 g/dL (6.6-8.7)
[2021-05-21 06:12] LABS: D Dimer >= 20.00 ug/mIFEU (0-0.59)
[2021-05-21 06:25] LABS: Creatine Phosphokinase 361 U/L (39-308)
[2021-05-21 06:38] LABS: Basophils % 0.2 %; Hematocrit 48.9 % (42.0-52.0); Hemoglobin 15.1 g/dL (11.7-16.6); Lymphocytes # 0.4 10^3/uL (0.8-4.8); Lymphocytes % 4.2 %; Mean Corpuscular HGB Conc 30.9 g/dL (30.0-36.0); Mean Corpuscular Hemoglobin 30.4 pg (28.0-34.0); Mean Corpuscular Volume 98.6 fL (80-94); Mean Platelet Volume 10.8 fL (7.4-10.4); Monocytes # 0.2 10^3/uL (0.2-0.9); Monocytes % 1.9 %; Neutrophils # 9.44 10^3/uL (1.8-7.7); Neutrophils % 92.6 %; Nucleated Red Blood Cells % 0 %; Platelet Count 184 10^3/cmm (130-400); Red Blood Count 4.96 10^6/uL (4.1-5.3); Red Cell Distribution Width 13.6 % (12.1-15.1); White Blood Count 10.2 10^3/uL (4.0-10.0)
[2021-05-21 06:49] LABS: Fibrinogen 406 mg/dL (174-498)
--- NOTE | 2021-05-21 06:50 | XRR_ITS ---
PROCEDURE INFORMATION: Exam: XR Chest Exam date and time: 05/21/2021 6:50 AM Age: 60 years old Clinical indication: Shortness of breath; Additional info: Increased d-dimer TECHNIQUE: Imaging protocol: XR of the chest. Views: Frontal portable upright view of the chest. COMPARISON: CR (CHEST, ) 05/20/2021 1:27 PM FINDINGS: Tubes, catheters and devices: EKG leads are present overlying the chest. Lungs: Mild interval improvement in left-sided pulmonary infiltrates. Stable right mid-lower lung zone patchy pulmonary infiltrates. The pulmonary vasculature is normal. Pleural spaces: No pleural effusion. No pneumothorax. Heart/Mediastinum: The heart is normal in size and contour. Mediastinum: Stable. Bones/joints: Stable. XR/XR chest 1V portable [id number] IMPRESSION: 1. Mild interval improvement in left-sided pulmonary infiltrates. 2. Stable right mid-lower lung zone patchy pulmonary infiltrates.
[2021-05-21 08:16] LABS: Magnesium 2.9 mg/dL (1.7-2.3)
[2021-05-21 08:30] LABS: Ferritin 2050 ng/mL (30-400)
[2021-05-21] MEDS: dextrose 5% 1,000 ML 75 ML IV ×2 (09:33→21:43)
[2021-05-21] MEDS: enoxaparin 100 mg/mL Syringe SUBCUT ×2 (09:34→21:41)
[2021-05-21] MEDS: budesonide 0.5 mg/2 mL Neb INHALATION ×2 (09:45→20:40)
[2021-05-21] MEDS: vancomycin 1,500 MG/300 ML PIGGYBACK 200 MG IV ×2 (10:00→21:42)
--- NOTE | 2021-05-21 11:14 | PC.RESP ---
family refused abg. dr. ramirez notified.
[2021-05-21] MEDS: piperacillin-tazobactam 3.375 GM in sodium chloride 0.9% (plus) 50 ML IV ×2 (11:36→18:21)
--- NOTE | 2021-05-21 12:39 | PC.NURSE ---
Spoke with sister, Kimberley Thompson, pt's contact about plan of care. TO continue with same plan of care at this time, I.e. :Heated high flow cannula, Precedex, Levophed, antibiotics and other medications and fluids. Pt nor family want anything heroic. Ordered ABG declined at this time. Dr Hawk notified of family member's decision.
[2021-05-21] MEDS: dexamethasone 4 mg/mL INJ 6 MG IVP (15:12)
[2021-05-21] MEDS: remdesivir 100 MG in sodium chloride 0.9% (100 ml) 100 ML IV (18:21)
--- NOTE | 2021-05-21 19:00 | PC.NURSE ---
Report given to Carlos Cantu.
--- NOTE | 2021-05-21 19:05 | PC.NURSE ---
Left Forearm IV extravasation with levophed infusing at 2mcg/.min. Fluid pulled back and removed.IV then fluished, more fluid pulled back out of IV. Iv cath removed. Site marked. Dr Hawk notified of incident via telephone no new order received. Will continue to monitor.
--- NOTE | 2021-05-21 19:09 | PC.NURSE ---
Shift summary: pt has remained sedated throughout the day with Precedex. He has needed Ativan and Morphine IV twice for comfort this shift. Oral care and repositioning performed rarely this shift as he became very tachypniec , agitated and his O2 sats would drop. He remains on heated high flow nasal cannula at 60L and 100%. Iv extravasation on Left forearm. Site at time of this note unremarkable. restraints remain on to protect himself from dislodgng lines and oxygen from his agitation. No change in rate of Precedex rate. Levophed started today, remains at 2mcg/min. Urine output of 450ml straw colored urine.
[2021-05-22] VITALS (107 sets, daily range): BP systolic 72–135; BP diastolic 53–91; PULSE 66–106; RESP 20–51; TEMP 35.9–36.6; O2SAT 79–100
[2021-05-22] MEDS: dexmedetomidine 400 MCG in sodium chloride 0.9% (100 ml) 100 ML 13.56 MCG IV ×2 (00:14→10:00)
--- NOTE | 2021-05-22 00:46 | P.PN_ITS ---
Subjective Subjective: Interval history: Patient was seen and examined this morning,continue to require high supplemental oxygen through [facility] Continue to be require precedex, ativan and morphine to be in compliant with [facility]. Medications: Reviewed: Yes Vitals/I&O/Wt Last Vital Signs Temp 98.5 F 05/21/21 20:00 Pulse 88 05/22/21 00:04 Resp 28 H 05/22/21 00:00 BP 108/74 05/22/21 00:00 Pulse Ox 95 05/22/21 00:00 05/21/21 05/21/21 05/22/21 14:59 22:59 06:59 Intake Total 404 / 404 1216.5 / 1620.5 300 / 1920.5 Output Total 450 / 450 Balance 404 / 404 766.5 / 1170.5 300 / 1470.5 Physical Exam Const: COMMON NORMALS: patient oriented x3 HENMT: COMMON NORMALS: normocephalic and atraumatic HEAD & SCALP: normocephalic and atraumatic Resp: OTHER: Diminished air entry b/l Cardio: COMMON NORMALS: regular rate, regular rhythm, S1 normal heart sound present, S2 normal heart sound present, No gallops present (Cardio), No murmurs present (Cardio), No rub (Cardio) and Peripheral pulses 2+ throughout RATE: regular rate RHYTHM: regular rhythm HEART SOUNDS: S1 normal heart sound present and S2 normal heart sound present PERIPHERAL PULSES: Peripheral pulses 2+ throughout GI: COMMON NORMALS: Normal to inspection, nondistended, normoactive bowel sounds present, Soft to palpation, non-tender, No hepatosplenomegaly present and no masses AUSCULTATION: Yes normoactive bowel sounds PALPATION: Yes Soft to palpation and Yes No hepatosplenomegaly present RECTAL EXAM: Yes deferred Extremity: COMMON NORMALS: no clubbing, cyanosis or edema and no pedal edema Neuro: COMMON NORMALS: patient oriented x3 Urinary Catheter Management^: Bradley: Cath Placed During This Visit: yes Reason for Continuing Indwelling Catheter: Accurate Measurement of Urinary Ou tput in Critically Ill Patients Urinary Catheter Date of Insertion: 05/18/21 Urinary Catheter Time of Insertion: 13:33 Data : 05/21/21 05:22 05/21/21 05:22 A&P Assessment and plan (1) Acute respiratory distress syndrome (ARDS) due to severe acute respiratory syndrome coronavirus 2 (SARS-CoV-2): Acute hypoxic respiratory failure secondary to severe ARDS secondary to Covid pneumonia: CTA Negative for P/E .Diffuse bilateral hazy groundglass infiltrates Xray chest :Worsening b/l air space disease. D-Dimer: >20 ESR: CRP:73 Ferittin : 2050 Fibrinogen: 406 Procalcitonin : 0.39 Blood Culture: NTD ABG : Ph:7.48, PCO2: 25, PO2: 59, FIO2: 5 days course of Remdesivir 200 mg IV x 1, then 100 mg IV daily x 4 day. Dexamaethasone 10 days course Initially on Cef And Azithromycin Currently on :Vancomycin and Zosyn S/P 1 Dose of Tocilizumab On Lovenox 100 mg sc q12 h daily Morphine 2 mg I.V Q4H PRN Ativan 2 mg I.V Q4H PRN On Precedex Drip On [facility]ONC as tolerated Lasix as needed Status: Acute (2) Respiratory failure with hypoxia: Ac hypoxic r/f 2/2 COVID PNA On COVID Protocol. Status: Acute (3) Pneumonia due to COVID-19 virus: Status: Acute (4) Acute kidney injury superimposed on chronic kidney disease: Pre renal NOREEN ON CKD 2/2 Severe dehydration . Admission SCR: 1.6 Baseline SCR is unknown I.V Hydration Monitor BMP Urine electrolytes Avoid Nephrotoxics Status: Acute (5) Hypernatremia: Hypovolemic hypernatremia: D5 water at 75 cc an hour Monitor BMP Status: Acute (6) Elevated CPK: I.V Hydration Monitor CPK Status: Acute (7) Metabolic acidosis: Status: Acute (8) Elevated lactic acid level: Likely secondary dehydration resolved. 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
[2021-05-22] MEDS: piperacillin-tazobactam 3.375 GM in sodium chloride 0.9% (plus) 50 ML IV ×3 (03:02→18:45)
[2021-05-22 03:46] LABS: Basophils % 0.2 %; Hematocrit 49.1 % (42.0-52.0); Hemoglobin 15.4 g/dL (11.7-16.6); Lymphocytes # 0.4 10^3/uL (0.8-4.8); Lymphocytes % 3.1 %; Mean Corpuscular HGB Conc 31.4 g/dL (30.0-36.0); Mean Corpuscular Hemoglobin 30.4 pg (28.0-34.0); Mean Platelet Volume 11.2 fL (7.4-10.4); Monocytes # 0.3 10^3/uL (0.2-0.9); Neutrophils # 11.57 10^3/uL (1.8-7.7); Neutrophils % 93.2 %; Nucleated Red Blood Cells % 0 %; Platelet Count 185 10^3/cmm (130-400); Red Blood Count 5.06 10^6/uL (4.1-5.3); Red Cell Distribution Width 13.4 % (12.1-15.1); White Blood Count 12.4 10^3/uL (4.0-10.0)
[2021-05-22 04:24] LABS: Alanine Aminotransferase 51 U/L (0-41); Albumin Level 2.8 g/dL (3.5-5.2); Alkaline Phosphatase 68 IU/L (40-130); Aspartate Amino Transferase 49 U/L (0-40); Blood Urea Nitrogen 41 mg/dL (8-23); C Reactive Protein 42.3 mg/L (0.0-4.9); Calcium 7.5 mg/dL (8.5-10.5); Carbon Dioxide 18 mmol/L (22-29); Chloride 116 mmol/L (98-107); Glomerular Filtration Rate 61.8 mL/min (90-130); Glucose 197 mg/dL (65-115); Osmolality Calculated 320 mOsm/kg (285-295); Sodium 147 mmol/L (136-145); Total Bilirubin 0.6 mg/dL (0.15-1.2); Total Protein 5.8 g/dL (6.6-8.7)
[2021-05-22 04:43] LABS: D Dimer 18.65 ug/mIFEU (0-0.59); Ferritin 1991 ng/mL (30-400)
[2021-05-22 05:17] LABS: Erythrocyte Sedimentation Rate 20 mm/hr (0-10)
[2021-05-22] MEDS: morphine 4 mg/mL SDV 1 mL 2 MG IVP (07:13)
[2021-05-22] MEDS: LORazepam 2 mg/mL INJ 1 mL IVP (07:13)
[2021-05-22] MEDS: ipratropium-albuterol 3 mL Neb INHALATION ×8 (07:25→23:19)
--- NOTE | 2021-05-22 09:16 | USCV_ITS ---
Logan Wei Age: 60 Gender: M : 1960 Exam Date: 05/22/2021 09:58 Ordering Phys: Jermain Pace MD Technologist: Exam Location: [facility] [place] Indication: SOB COVID BP: 111 / 77 HR: 77 Rhythm: Sinus Technical Quality: Adequate MEASUREMENTS (Male / Female) Normal Values 2D ECHO LV Diastolic Diameter PLAX 3.9 cm 4.2 - 5.9 / 3.9 - 5.3 cm LV Systolic Diameter PLAX 2.9 cm IVS Diastolic Thickness 1.1 cm 0.6 - 1.0 / 0.6 - 0.9 cm IVS Systolic Thickness 1.2 cm LVPW Diastolic Thickness 1.1 cm 0.6 - 1.0 / 0.6 - 0.9 cm LVPW Systolic Thickness 1.3 cm LVOT Diameter 2.1 cm LV Ejection Fraction 2D Teich 50.4 % LV Ejection Fraction MOD 2C 51.5 % LV Ejection Fraction 2C AL 50.7 % LA Diameter 2.9 cm Aorta at Sinotubular Diameter 3.4 cm DOPPLER AV Peak Velocity 94.0 cm/s LVOT Peak Velocity 73.0 cm/s AV Area Cont Eq vti 3.1 cm squared AV Area Cont Eq pk 2.8 cm squared MV Area PHT 5.0 cm squared MV E' Velocity 4.5 cm/s Mitral E to MV E' Ratio 0.8 Mitral E to LV E' Lateral Ratio 0.8 Mitral E to LV E' Septal Ratio 0.9 FINDINGS Left Ventricle Normal left ventricular cavity size. Normal left ventricular systolic function. No regional wall motion abnormalities. Left ventricular ejection fraction is estimated at 55 %. Right Ventricle The right ventricle is normal in size and function. RVSP could not be calculated due to incomplete tricuspid regurgitation velocity profile. Right Atrium The right atrium is normal in size. Left Atrium The left atrium is normal in size. Mitral Valve Mildly thickened mitral valve. No mitral valve stenosis. Trace mitral valve regurgitation. Aortic Valve Aortic valve sclerosis without stenosis trace regurgitation. Tricuspid Valve Mild tricuspid valve stenosis. No tricuspid valve regurgitation. Pulmonic Valve Structurally normal pulmonic valve without significant stenosis. There is no pulmonic regurgitation. Pericardium Normal pericardium without effusion. Aorta Normal ascending aorta dimension. CONCLUSIONS 1-Normal left ventricular cavity size. Normal left ventricular systolic function. No regional wall motion abnormalities. Left ventricular ejection fraction is estimated at 55 %. 2-No significant valve abnormalities. 3-There is no pericardial effusion. 4-The right ventricle is normal in size and function. RVSP could not be calculated due to incomplete tricuspid regurgitation velocity profile. 5-Right atrial pressure is around 5 mm of mercury. 6-There are no prior echocardiogram studies to compare. Danuta Gonzalez MD (Electronically Signed) Final Date: 23 May 2021 18:34 S
--- NOTE | 2021-05-22 09:47 | P.PN_ITS ---
Subjective Subjective: Interval history: Hospital course, labs appreciated. Patient seen multiple times during the day. On examination early in the morning patient drowsy on Precedex of 0.6, Levophed of 2 saturating 92% on heated high flow. During the day patient's Levophed was switched off after which his maps were at borderline 60s to Levophed was started again while being weaned off gradually no. Precedex is weaned down to 0.3 with patient arousable now still on heated high flow. Patient's goal of care were discussed with his healthcare proxy sister Ms. Kimberley Thompson who states patient would not want any kind of aggressive treatment including chest compressions, ventilator support, ABG, BiPAP but they are okay with current treatment plan without any escalation of care and would want to revisit goals of care in few days if patient does not have any medical improvement on current treatment. Medications: Reviewed: Yes Vitals/I&O/Wt Last Vital Signs Temp 98.5 F 05/21/21 20:00 Pulse 81 05/22/21 07:26 Resp 30 H 05/22/21 07:26 BP 118/79 05/22/21 06:00 Pulse Ox 93 05/22/21 07:26 05/21/21 05/22/21 05/22/21 22:59 06:59 14:59 Intake Total 1216.5 / 1620.5 300 / 1920.5 50 / 50 Output Total 450 / 450 850 / 1300 Balance 766.5 / 1170.5 -550 / 620.5 50 / 50 Physical Exam Narrative: EXAM NARRATIVE: General: Chronically sick appearing, no acute distress, drowsy but arousable AO x1-2, no agitation Bilateral bronchial breath sounds, HEENT: PERRLA, pupils bilaterally equal and reactive Chest: Bilateral rhonchi, crackles present on the lung neal, equal good air entry bilaterally CVS: S1-S2 regular, no murmurs, no tachycardia, no gallops, no rubs Abdomen: Soft, nontender, no organomegaly, bowel sounds present Neuro: Pupils bilaterally equal reactive, patient drowsy but arousable, maintaining airway on heated high flow Urinary Catheter Management^: Bradley: Cath Placed During This Visit: yes Reason for Continuing Indwelling Catheter: Accurate Measurement of Urinary Output in Critically Ill Patients Urinary Catheter Date of Insertion: 05/18/21 Urinary Catheter Time of Insertion: 13:33 Data : 05/22/21 03:23 05/22/21 03:23 A&P Assessment and plan (1) Septic shock: Status: Acute (2) Acute respiratory distress syndrome (ARDS) due to severe acute respiratory syndrome coronavirus 2 (SARS-CoV-2): Status: Acute (3) Hypernatremia: Status: Acute (4) Elevated CPK: I.V Hydration Monitor CPK Status: Acute (5) COPD (chronic obstructive pulmonary disease): Status: Acute (6) Dehydration: Status: Acute (7) Elevated lactic acid level: Likely secondary dehydration resolved. Status: Acute (8) Acute kidney injury superimposed on chronic kidney disease: Resolved. Present on admission most likely secondary dehydration. Medical reconciliation done for nephrotoxic drugs. For now continue to monitor BMP daily. Status: Acute (9) Metabolic acidosis: Status: Acute Additional A&P Information ARDS secondary to COVID-19 pneumonia: Moderate to severe disease. Continue oxygen supplementation keeping saturation 88 to 90%. Post 1 dose of Actemra. Remdesivir for 5 days Dexamethasone 6 mg IV daily. Vitamin C, zinc. DuoNebs every 4 hour, budesonide twice daily. Pulmonary toilet with incentive spirometry and Acapella when able. D-dimer elevated. CTA done earlier in the admission negative for pulmonary embolism. But patient is critically ill so for now we will continue full dose Lovenox. Patient will most likely require anticoagulation for 14 days post discharge. Continue to monitor inflammatory markers including ESR, CRP, ferritin, D-dimer. Low suspicion of bacterial pneumonia for now. But given critical illness for now we will continue with vancomycin and Zosyn. Check MRSA swab, procalcitonin, sputum culture, bacterial antigen, urine Legionella. Prelim blood cultures negative. If MRSA negative can stop vancomycin. Septic shock: Most likely to above. Wean off Levophed keeping mean arterial pressure over 65. Monitor input output charting. Acute metabolic encephalopathy: Most likely secondary to hypernatremia along with severe illness. Switch fluid to D5 half NS at 75 cc/h. For now repeat BMP every 24 hours. Goals of care: And discussed with patient's healthcare proxy in detail. For now continue current medical treatment without escalation. No BiPAP, mechanical ventilation, ABG. If patient continues to be critically ill for next 48 hours will revisit regarding further goals of care. Code Status :AND DVT PPX: on full dose lovenox Protonix for PUD prophylaxis Critically ill. Attestations Medical Necessity Statement*: Patient requires further hospitalization for management of ARDS secondary COVID-19 pneumonia, acute metabolic encephalopathy secondary to hypernatremia, high flow dependent Critical Care Time: The high probability of a clinically significant, sudden or life threatening deterioration of the patient's [respiratory, cardiac, renal] system(s) required my full and direct attention, intervention and personal management. The critical care time is as shown. 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
[2021-05-22] MEDS: enoxaparin 100 mg/mL Syringe SUBCUT ×2 (10:00→20:34)
[2021-05-22] MEDS: vancomycin 1,500 MG/300 ML PIGGYBACK 200 MG IV (10:03)
[2021-05-22] MEDS: azithromycin 500 MG in sodium chloride 0.9% 250 ML 250 MG IV (10:03)
[2021-05-22 11:10] LABS: Thyroid Stimulating Hormone 0.37 uIU/mL (0.27-4.20)
[2021-05-22 11:11] LABS: NT Pro B Type Natriuretic Pept 93 pg/mL (0-125); Procalcitonin 0.31 ng/mL (0-0.5)
[2021-05-22 11:22] LABS: Iron 154 ug/dL (59-158)
[2021-05-22 11:42] LABS: Unsaturated Iron Binding < 17 ug/dL (112-347)
[2021-05-22] MEDS: dexamethasone 4 mg/mL INJ 6 MG IVP (14:46)
[2021-05-22] MEDS: morphine 4 mg/mL SDV 1 mL 1 MG IVP ×3 (14:46→20:57)
[2021-05-22] MEDS: dextrose 5%-sod chloride 0.45% 1,000 ML 75 ML IV (14:48)
--- NOTE | 2021-05-22 15:45 | PC.NURSE ---
Levophed restarted due to hypotension.
--- NOTE | 2021-05-22 17:30 | PC.NURSE ---
Dr Fortune updated, in person in the ED, on Levohped gtt off from 1030 until 1545, then it was restarted due to SBP70's with MAP of 59. Precedex gtt has been decreased to 0.3mcg/kg/hr.
[2021-05-22] MEDS: remdesivir 100 MG in sodium chloride 0.9% (100 ml) 100 ML IV (17:50)
--- NOTE | 2021-05-22 18:00 | PC.NURSE ---
Upon arrival back to unit fro speaking to Dr Ch noted cannula at pt's chin,O2 sats at 78%, pt tachypneic and agitated, and pt's ankles off the end of the bed.. reapplied O2, with assistance repositioned pt back up in bed. Precedex increased briefly, 5 min, to help with anxiousness. Morphine admin for his comfort. It took approx 10 minutes for pt to settle , O2 crept back up to 90% before this nurse exited his room.
--- NOTE | 2021-05-22 19:25 | PC.NURSE ---
Report given to Carlos Cabrera.
[2021-05-22] MEDS: budesonide 0.5 mg/2 mL Neb INHALATION (20:28)
[2021-05-22] MEDS: haloperidol inj 5 mg/mL INJ 1 mL IVP (20:34)
[2021-05-22 22:11] LABS: Vancomycin Trough 18.5 ug/mL (10-15)
[2021-05-22] MEDS: dexmedetomidine 400 MCG in sodium chloride 0.9% (100 ml) 100 ML 18.99 MCG IV (23:23)
[2021-05-23] VITALS (69 sets, daily range): BP systolic 70–146; BP diastolic 49–91; PULSE 62–94; RESP 7–39; TEMP 36.1–37.2; O2SAT 79–100
[2021-05-23] MEDS: dextrose 5%-sod chloride 0.45% 1,000 ML 75 ML IV ×2 (03:42→21:24)
[2021-05-23] MEDS: piperacillin-tazobactam 3.375 GM in sodium chloride 0.9% (plus) 50 ML IV ×3 (03:42→18:19)
[2021-05-23 04:41] LABS: Basophils % 0.3 %; Hematocrit 46.4 % (42.0-52.0); Hemoglobin 14.4 g/dL (11.7-16.6); Lymphocytes # 0.4 10^3/uL (0.8-4.8); Mean Corpuscular Hemoglobin 30.3 pg (28.0-34.0); Mean Corpuscular Volume 97.7 fL (80-94); Mean Platelet Volume 11.3 fL (7.4-10.4); Monocytes # 0.3 10^3/uL (0.2-0.9); Monocytes % 2.3 %; Neutrophils # 9.94 10^3/uL (1.8-7.7); Nucleated Red Blood Cells % 0 %; Platelet Count 179 10^3/cmm (130-400); Red Blood Count 4.75 10^6/uL (4.1-5.3); White Blood Count 10.8 10^3/uL (4.0-10.0)
[2021-05-23 04:50] LABS: Estmated Average Glucose 148; Hemoglobin A1C 6.8 % (4.0-6.0)
[2021-05-23] MEDS: ipratropium-albuterol 3 mL Neb INHALATION ×4 (04:51→20:06)
[2021-05-23 04:59] LABS: D Dimer 9.44 ug/mIFEU (0-0.59)
[2021-05-23 05:00] LABS: Alanine Aminotransferase 36 U/L (0-41); Albumin Level 2.4 g/dL (3.5-5.2); Alkaline Phosphatase 47 IU/L (40-130); Anion Gap 16.8 (5-19); Aspartate Amino Transferase 33 U/L (0-40); Blood Urea Nitrogen 35 mg/dL (8-23); C Reactive Protein 13.5 mg/L (0.0-4.9); Calcium 7.1 mg/dL (8.5-10.5); Carbon Dioxide 17 mmol/L (22-29); Chloride 113 mmol/L (98-107); Creatine Phosphokinase 114 U/L (39-308); Creatinine Clr Calc Pharmacy 98.1004; Globulin 2.6 g/dL (1.3-4.6); Glomerular Filtration Rate 76.2 mL/min (90-130); Glucose 201 mg/dL (65-115); NT Pro B Type Natriuretic Pept 91 pg/mL (0-125); Osmolality Calculated 308 mOsm/kg (285-295); Potassium 4.8 mmol/L (3.5-5.1); Sodium 142 mmol/L (136-145); Total Bilirubin 0.5 mg/dL (0.15-1.2)
[2021-05-23 05:16] LABS: Ferritin 1586 ng/mL (30-400)
[2021-05-23] MEDS: dexmedetomidine 400 MCG in sodium chloride 0.9% (100 ml) 100 ML 24.41 MCG IV (05:26)
[2021-05-23 05:31] LABS: Erythrocyte Sedimentation Rate 11 mm/hr (0-10)
--- NOTE | 2021-05-23 06:00 | XR_ITS ---
WS: [id number] XR chest 1V portable [id number] REASON FOR EXAM: covid FINDINGS: Groundglass and nodular infiltrative density in both mid and lower lung neal, predominating on the right. No significant interval change compared to the previous day. No new findings. XR/XR chest 1V portable [id number] IMPRESSION: Findings compatible with Covid pneumonitis with no significant interval change from the prior day.
[2021-05-23] MEDS: budesonide 0.5 mg/2 mL Neb INHALATION ×2 (08:19→20:06)
--- NOTE | 2021-05-23 08:47 | PM.PN ---
Subjective Subjective: Interval history: No events overnight. Overnight patient was apparently agitated for which his Precedex was uptitrated to 0.8. Currently he is on 0.5 being weaned off. Patient did have an event of agitation while his Precedex was weaned off for which he required Haldol and morphine. Post that helped the Precedex was uptitrated again. During agitation patient had hypoxia and hypotension for which Levophed was briefly started. Cheetah exam showed patient to be fluid responsive for which he received 500 cc of Ringer lactate bolus. Patient remains on heated high flow 50 L 55% to maintain saturation 90%. Medications: Reviewed: Yes Vitals/I&O/Wt Last Vital Signs Temp 97.8 F 05/22/21 19:00 Pulse 70 05/23/21 08:35 Resp 23 H 05/23/21 08:35 BP 92/68 05/23/21 08:30 Pulse Ox 93 05/23/21 08:35 05/22/21 05/23/21 05/23/21 22:59 06:59 14:59 Intake Total 303.322 / 5308.558 7798.500 / 2657.767 50 / 50 Output Total 950 / 964 950 / 1914 Balance -646.678 / 622.267 121.500 / 743.767 50 / 50 Physical Exam Narrative: EXAM NARRATIVE: General: Chronically sick appearing, no acute distress, drowsy but arousable AO x1-2, no agitation Bilateral bronchial breath sounds, HEENT: PERRLA, pupils bilaterally equal and reactive Chest: Bilateral rhonchi, crackles present on the lung neal, equal good air entry bilaterally CVS: S1-S2 regular, no murmurs, no tachycardia, no gallops, no rubs Abdomen: Soft, nontender, no organomegaly, bowel sounds present Neuro: Pupils bilaterally equal reactive, patient drowsy but arousable, maintaining airway on heated high flow Urinary Catheter Management^: Bradley: Cath Placed During This Visit: yes Reason for Continuing Indwelling Catheter: Accurate Measurement of Urinary Output in Critically Ill Patients Urinary Catheter Date of Insertion: 05/18/21 Urinary Catheter Time of Insertion: 13:33 Data : 05/23/21 04:17 05/23/21 12:43 Micro: Microbiology 05/22/21 10:26 MRSA Culture - Final Nose 05/22/21 10:26 Bacterial Antigens - Final Urine Kidney 05/22/21 10:26 Legionella Urinary Antigen - Final Urine Catheterized A&P Assessment and plan (1) Septic shock: Status: Acute (2) Acute respiratory distress syndrome (ARDS) due to severe acute respiratory syndrome coronavirus 2 (SARS-CoV-2): Status: Acute (3) Hypernatremia: Status: Acute (4) Elevated CPK: I.V Hydration Monitor CPK Status: Acute (5) COPD (chronic obstructive pulmonary disease): Status: Acute (6) Dehydration: Status: Acute (7) Elevated lactic acid level: Likely secondary dehydration resolved. Status: Acute (8) Acute kidney injury superimposed on chronic kidney disease: Resolved. Present on admission most likely secondary dehydration. Medical reconciliation done for nephrotoxic drugs. For now continue to monitor BMP daily. Status: Acute (9) Metabolic acidosis: Status: Acute Additional A&P Information ARDS secondary to COVID-19 pneumonia: Moderate to severe disease. Continue oxygen supplementation keeping saturation 88 to 90%. Post 1 dose of Actemra. Finished course of remdesivir for 5 days Dexamethasone 6 mg IV daily. Vitamin C, zinc. DuoNebs every 4 hour, budesonide twice daily. Pulmonary toilet with incentive spirometry and Acapella when able. D-dimer elevated. CTA done earlier in the admission negative for pulmonary embolism. But patient is critically ill so for now we will continue full dose Lovenox. Patient will most likely require anticoagulation for 14 days post discharge. Continue to monitor inflammatory markers including ESR, CRP, ferritin, D-dimer. Low suspicion of bacterial pneumonia for now. MRSA swab negative, procalcitonin negative. Sputum culture awaited. Urine Legionella, bacterial region negative. Stop vancomycin. Continue with Zosyn as patient remains critically ill. Septic shock: Most likely to above. Levophed weaned off. Cheetah exam showed patient to be fluid responsive. Continue with IV fluid at 100 cc/h. Monitor input output charting. Acute metabolic encephalopathy: Most likely secondary to hypernatremia along with severe illness. Resolving. Continue with D5 half NS 100 cc/h. Repeat BMP daily for now. Goals of care: And discussed with patient's healthcare proxy in detail. For now continue current medical treatment without escalation. No BiPAP, mechanical ventilation, ABG. If patient's mentation does not improve next 24 hours even though his sodium levels have improved and will be to have further goals of care discussion and possible transition over to comfort care measures. Code Status :AND DVT PPX: on full dose lovenox Protonix for PUD prophylaxis Critically ill. Attestations Medical Necessity Statement*: Requires further hospitalization for management of ARDS secondary COVID-19 pneumonia, acute metabolic encephalopathy secondary to hypernatremia, severe illness Time Spent in Patient Care: Greater than 35 minutes (>than 50% of time spent in counselling and/or direct pt care on unit). Coding Level of Care Code Acute Supervisor Instrument Maintenance for g Fwd Diagnoses Septic shock A41.9; R65.21 Acute respiratory distress syndrome (ARDS) due to severe acute respiratory syndrome coronavirus 2 (SARS-CoV-2) U07.1; J80 Hypernatremia E87.0 Elevated CPK R74.8 COPD (chronic obstructive pulmonary disease) J44.9 Dehydration E86.0 Elevated lactic acid level R79.89 Acute kidney injury superimposed on chronic kidney disease N17.9; N18.9 Metabolic acidosis E87.2
[2021-05-23] MEDS: FUROsemide 10 mg/mL SDV 2mL 20 MG IVP (09:10)
[2021-05-23] MEDS: enoxaparin 100 mg/mL Syringe SUBCUT ×2 (09:32→20:59)
[2021-05-23] MEDS: azithromycin 500 MG in sodium chloride 0.9% 250 ML 250 MG IV (09:32)
--- NOTE | 2021-05-23 09:57 | PC.CHAP ---
Pastoral Care Encounter/Spiritual Assessment Type of Contact [] Declined chief contract officer visit [] Patient/Family/Request visit [] Outpatient visit [] Follow-up visit [] Physician referral [] Code/Alert [x] Routine visit [] Staff referral [] Actively dying [] Patient sleeping [] Family support [] [] Out of room [] Palliative care [] [] Receiving care in room [] Pre-surgical visit [] Trauma [] Long length of stay [x] ICU visit [x] Other: isolated Relational/Emotional Strength [] Patient feels connected with others/family/visitors/staff [] Distress [] Loneliness/isolation [] Abandonment Spirituality of Patient [] Person of Destini [] Attends Buddhism of their [place]ini [] Believes in Prayer [] Reads Bible or Episcopalian materials [] There are Spiritual issues to be addressed Circle Beveler Interventions [x] Prayer [] Active listening [] Non-anxious presence [] Spiritual/emotional support [] Crisis/trauma care [] Spiritual counseling [] Bereavement support [] Provided bereavement packet [] Provided Bible/devotional materials [] Provided toy/stuffed animal, coloring book to patient or family member [] Provided Communion [] Anointing/[place] [] Salvation [x] Completed spiritual assessment [] Other: Impact on Illness or Injury [] Angry [] Fearful [] Anxious [] Often cries [] Exhaustion [] Unable to work [] Unable to attend synagogue [] Unable to walk/stand [] Unable to read [] Unable to drive [] Unable to eat/drink [] Unable to sleep [] Unable to be with family [] Patient intubated [] Other: Summary Time spent with patient
[2021-05-23] MEDS: morphine 4 mg/mL SDV 1 mL 1 MG IVP (11:07)
[2021-05-23] MEDS: haloperidol inj 5 mg/mL INJ 1 mL IVP (11:07)
[2021-05-23] MEDS: dexmedetomidine 400 MCG in sodium chloride 0.9% (100 ml) 100 ML 13.56 MCG IV (12:30)
[2021-05-23 13:33] LABS: Anion Gap 18.2 (5-19); Blood Urea Nitrogen 37 mg/dL (8-23); Calcium 7.6 mg/dL (8.5-10.5); Carbon Dioxide 19 mmol/L (22-29); Chloride 111 mmol/L (98-107); Creatinine Clr Calc Pharmacy 98.1004; Glomerular Filtration Rate 76.2 mL/min (90-130); Glucose 123 mg/dL (65-115); Osmolality Calculated 308 mOsm/kg (285-295); Potassium 4.2 mmol/L (3.5-5.1); Sodium 144 mmol/L (136-145)
[2021-05-23] MEDS: lactated ringers 500 ML 999 ML IV (14:02)
[2021-05-23] MEDS: dexamethasone 4 mg/mL INJ 6 MG IVP (14:02)
[2021-05-24] VITALS (61 sets, daily range): BP systolic 59–161; BP diastolic 40–101; PULSE 74–140; RESP 16–66; TEMP 34.4–37; O2SAT 65–93
[2021-05-24] MEDS: ipratropium-albuterol 3 mL Neb INHALATION ×4 (00:41→11:31)
[2021-05-24] MEDS: piperacillin-tazobactam 3.375 GM in sodium chloride 0.9% (plus) 50 ML IV ×2 (03:43→10:43)
[2021-05-24 05:25] LABS: Basophils % 0.2 %; Eosinophils % 0.1 %; Hematocrit 46.7 % (42.0-52.0); Hemoglobin 14.6 g/dL (11.7-16.6); Lymphocytes # 0.7 10^3/uL (0.8-4.8); Lymphocytes % 5.2 %; Mean Corpuscular HGB Conc 31.3 g/dL (30.0-36.0); Mean Corpuscular Hemoglobin 30.2 pg (28.0-34.0); Mean Corpuscular Volume 96.7 fL (80-94); Mean Platelet Volume 11.6 fL (7.4-10.4); Monocytes # 0.4 10^3/uL (0.2-0.9); Monocytes % 2.9 %; Neutrophils # 11.36 10^3/uL (1.8-7.7); Neutrophils % 90.5 %; Nucleated Red Blood Cells % 0 %; Platelet Count 168 10^3/cmm (130-400); Red Blood Count 4.83 10^6/uL (4.1-5.3); White Blood Count 12.6 10^3/uL (4.0-10.0)
[2021-05-24 05:44] LABS: D Dimer 8.11 ug/mIFEU (0-0.59)
[2021-05-24 05:59] LABS: Alanine Aminotransferase 34 U/L (0-41); Albumin Level 2.6 g/dL (3.5-5.2); Alkaline Phosphatase 53 IU/L (40-130); Aspartate Amino Transferase 38 U/L (0-40); Blood Urea Nitrogen 35 mg/dL (8-23); C Reactive Protein 6.1 mg/L (0.0-4.9); Calcium 7.3 mg/dL (8.5-10.5); Carbon Dioxide 22 mmol/L (22-29); Chloride 113 mmol/L (98-107); Creatine Phosphokinase 144 U/L (39-308); Creatinine Clr Calc Pharmacy 98.1004; Globulin 2.4 g/dL (1.3-4.6); Glomerular Filtration Rate 76.2 mL/min (90-130); Glucose 136 mg/dL (65-115); NT Pro B Type Natriuretic Pept 109 pg/mL (0-125); Osmolality Calculated 310 mOsm/kg (285-295); Sodium 145 mmol/L (136-145); Total Bilirubin 0.7 mg/dL (0.15-1.2)
[2021-05-24 06:12] LABS: Ferritin 1563 ng/mL (30-400)
[2021-05-24 06:20] LABS: Erythrocyte Sedimentation Rate 7 mm/hr (0-10)
[2021-05-24] MEDS: dextrose 5%-sod chloride 0.45% 1,000 ML 75 ML IV (08:51)
[2021-05-24] MEDS: azithromycin 500 MG in sodium chloride 0.9% 250 ML 250 MG IV (08:52)
[2021-05-24] MEDS: enoxaparin 100 mg/mL Syringe SUBCUT (08:52)
--- NOTE | 2021-05-24 09:05 | PC.CHAP ---
Pastoral Care Encounter/Spiritual Assessment Type of Contact [] Declined ticket sales supervisor visit [] Patient/Family/Request visit [] Outpatient visit [] Follow-up visit [] Physician referral [] Code/Alert [x] Routine visit [] Staff referral [] Actively dying [] Patient sleeping [] Family support [] [] Out of room [] Palliative care [] [x] Receiving care in room [] Pre-surgical visit [] Trauma [] Long length of stay [x] ICU visit [x] Other: isolated Relational/Emotional Strength [] Patient feels connected with others/family/visitors/staff [] Distress [] Loneliness/isolation [] Abandonment Spirituality of Patient [] Person of Destini [] Attends Holiness of their Destini [] Believes in Prayer [] Reads Bible or Adventism materials [] There are Spiritual issues to be addressed Livestock Dealer Interventions [x] Prayer [] Active listening [] Non-anxious presence [] Spiritual/emotional support [] Crisis/trauma care [] Spiritual counseling [] Bereavement support [] Provided bereavement packet [] Provided Bible/devotional materials [] Provided toy/stuffed animal, coloring book to patient or family member [] Provided Communion [] Anointing/[place] [] Salvation [x] Completed spiritual assessment [] Other: Impact on Illness or Injury [] Angry [] Fearful [] Anxious [] Often cries [] Exhaustion [] Unable to work [] Unable to attend moravian [] Unable to walk/stand [] Unable to read [] Unable to drive [] Unable to eat/drink [] Unable to sleep [] Unable to be with family [] Patient intubated [] Other: Summary Time spent with patient
[2021-05-24] MEDS: budesonide 0.5 mg/2 mL Neb INHALATION (09:08)
[2021-05-24] MEDS: morphine 4 mg/mL SDV 1 mL 1 MG IVP ×2 (11:18→12:26)
[2021-05-24] MEDS: haloperidol inj 5 mg/mL INJ 1 mL IVP (11:21)
[2021-05-24] MEDS: LORazepam 2 mg/mL INJ 1 mL IVP ×3 (12:39→20:09)
[2021-05-24] MEDS: morphine 10 mg/0.5 mL oral liq UD SUBLINGUAL ×3 (12:42→17:53)
--- NOTE | 2021-05-24 12:56 | PC.NURSE ---
Pt placed on comfort care at this time.
[2021-05-24] MEDS: morphine 4 mg/mL SDV 1 mL IVP ×3 (13:16→20:08)
--- NOTE | 2021-05-24 15:34 | PM.PN ---
Subjective Subjective: Interval history: Patient seen multiple times during the day. Multiple goals of care discussion with family. Today morning on examination patient was laying in bed. Precedex drip was stopped last night. Patient was awake to self and place. During the day patient continued to have occasional episode of agitation along with respiratory distress with saturations running down to 60s not recovering with nonrebreather and heated high flow. Given patient's own goals of care of no aggressive treatment, no BiPAP or ventilator support further goals of care discussions were done and patient was transitioned over to comfort care measures only. Medications: Reviewed: Yes Vitals/I&O/Wt Last Vital Signs Temp 98.6 F 05/24/21 09:00 Pulse 111 H 05/24/21 14:30 Resp 34 H 05/24/21 14:30 BP 72/52 05/24/21 14:30 Pulse Ox 75 L 05/24/21 14:30 05/24/21 05/24/21 05/24/21 06:59 14:59 22:59 Intake Total 1198.873 / 1198.873 Output Total 1350 / 2750 Balance -1350 / -920.143 1919.873 / 1198.873 Physical Exam Narrative: EXAM NARRATIVE: General: Chronically sick appearing, no acute distress, drowsy but arousable AO x1-2, no agitation Bilateral bronchial breath sounds, HEENT: PERRLA, pupils bilaterally equal and reactive Chest: Bilateral rhonchi, crackles present on the lung neal, equal good air entry bilaterally CVS: S1-S2 regular, no murmurs, no tachycardia, no gallops, no rubs Abdomen: Soft, nontender, no organomegaly, bowel sounds present Neuro: Pupils bilaterally equal reactive, patient drowsy but arousable, maintaining airway on heated high flow Urinary Catheter Management^: Bradley: Cath Placed During This Visit: yes Reason for Continuing Indwelling Catheter: Accurate Measurement of Urinary Output in Critically Ill Patients Urinary Catheter Date of Insertion: 05/18/21 Urinary Catheter Time of Insertion: 13:33 Data : 05/24/21 05:02 05/24/21 05:02 Micro: Microbiology 05/18/21 15:51 Blood Culture - Final Blood NO GROWTH AFTER 5 DAYS 05/18/21 15:44 Blood Culture - Final Blood NO GROWTH AFTER 5 DAYS A&P Assessment and plan (1) Septic shock: Status: Acute (2) Acute respiratory distress syndrome (ARDS) due to severe acute respiratory syndrome coronavirus 2 (SARS-CoV-2): Status: Acute (3) Hypernatremia: Status: Acute (4) Elevated CPK: I.V Hydration Monitor CPK Status: Acute (5) COPD (chronic obstructive pulmonary disease): Status: Acute (6) Dehydration: Status: Acute (7) Elevated lactic acid level: Likely secondary dehydration resolved. Status: Acute (8) Acute kidney injury superimposed on chronic kidney disease: Resolved. Present on admission most likely secondary dehydration. Medical reconciliation done for nephrotoxic drugs. For now continue to monitor BMP daily. Status: Acute (9) Metabolic acidosis: Status: Acute Additional A&P Information ARDS secondary to COVID-19 pneumonia: Moderate to severe disease. Continue oxygen supplementation keeping saturation 88 to 90%. Post 1 dose of Actemra. Finished course of remdesivir for 5 days Dexamethasone 6 mg IV daily. Vitamin C, zinc. DuoNebs every 4 hour, budesonide twice daily. Pulmonary toilet with incentive spirometry and Acapella when able. Given multiple goals of care discussion with patient's DPOA Ms. Kimberley Thompson and patient's self goals of care of no aggressive treatment with no ventilator support, no BiPAP support no ABG because patient continued to have persistent hypoxia with saturation will down to 60s with minimal ambulation family decided patient to be comfort measures only. Patient has been transitioned to comfort measures only. Ativan, morphine as needed as per the comfort measure protocol. Succinylcholine/glycopyrrolate for secretions. No further blood work. Stop dexamethasone, antibiotics, remdesivir. Can continue with inhalation treatment and minimal oxygen support keeping patient comfortable. Attestations Medical Necessity Statement*: She requires further hospitalization for management of ARDS, comfort measures only status Critical Care Time: The high probability of a clinically significant, sudden or life threatening deterioration of the patient's [respiratory, multiple goals of care discussion system(s) required my full and direct attention, intervention and personal management. The critical care time is as shown. This time is in addition to time spent performing any reported procedures but includes the following: [x] Data and vital sign review and interpretation [x] Patient assessment, examination and intervention [x] Documentation [x] Medication orders and management Critical Care Time (min): 50 Coding Level of Care Code Acute Aircraft Inspection Record Clerk for Chg Fwd Diagnoses Septic shock A41.9; R65.21 Acute respiratory distress syndrome (ARDS) due to severe acute respiratory syndrome coronavirus 2 (SARS-CoV-2) U07.1; J80 Hypernatremia E87.0 Elevated CPK R74.8 COPD (chronic obstructive pulmonary disease) J44.9 Dehydration E86.0 Elevated lactic acid level R79.89 Acute kidney injury superimposed on chronic kidney disease N17.9; N18.9 Metabolic acidosis E87.2
[2021-05-24] MEDS: dexmedetomidine 400 MCG in sodium chloride 0.9% (100 ml) 100 ML 8.14 MCG IV (15:55)
--- NOTE | 2021-05-24 18:08 | PC.NURSE ---
Restraints removed at time comfort care measures placed. See Physician's orders.
[2021-05-25] VITALS (31 sets, daily range): BP systolic 65–134; BP diastolic 48–72; PULSE 81–122; RESP 18–40; TEMP 34.4–37.3; O2SAT 68–84
[2021-05-25] MEDS: morphine 4 mg/mL SDV 1 mL IVP ×5 (00:10→15:50)
[2021-05-25] MEDS: LORazepam 2 mg/mL INJ 1 mL IVP ×5 (00:10→15:52)
[2021-05-25] MEDS: dexmedetomidine 400 MCG in sodium chloride 0.9% (100 ml) 100 ML 18.99 MCG IV (08:53)
--- NOTE | 2021-05-25 09:10 | PC.CHAP ---
Pastoral Care Encounter/Spiritual Assessment Type of Contact [] Declined audit intern visit [] Patient/Family/Request visit [] Outpatient visit [] Follow-up visit [] Physician referral [] Code/Alert [x] Routine visit [] Staff referral [] Actively dying [] Patient sleeping [] Family support [] [] Out of room [] Palliative care [] [x] Receiving care in room [] Pre-surgical visit [] Trauma [] Long length of stay [x] ICU visit [x] Other: patient setting up.. isolated Relational/Emotional Strength [] Patient feels connected with others/family/visitors/staff [] Distress [] Loneliness/isolation [] Abandonment Spirituality of Patient [] Person of [place]ini [] Attends Anglican of their [place] [] Believes in Prayer [] Reads Bible or Denominational materials [] There are Spiritual issues to be addressed Digital Content Specialist Interventions [x] Prayer [] Active listening [] Non-anxious presence [] Spiritual/emotional support [] Crisis/trauma care [] Spiritual counseling [] Bereavement support [] Provided bereavement packet [] Provided Bible/devotional materials [] Provided toy/stuffed animal, coloring book to patient or family member [] Provided Communion [] Anointing/[place] [] Salvation [x] Completed spiritual assessment [] Other: Impact on Illness or Injury [] Angry [] Fearful [] Anxious [] Often cries [] Exhaustion [] Unable to work [] Unable to attend adventism [] Unable to walk/stand [] Unable to read [] Unable to drive [] Unable to eat/drink [] Unable to sleep [] Unable to be with family [] Patient intubated [] Other: Summary Time spent with patient
--- NOTE | 2021-05-25 11:00 | PC.NURSE ---
Patient was given PRN medications for dyspnea. Patient is resting comfortably in bed. Respirations are shallow and patient has not been responding to verbal commands. Family aware of condition.
--- NOTE | 2021-05-25 17:05 | P.PN_ITS ---
Subjective Subjective: Interval history: No current overnight. Remains comfortable. Medications: Reviewed: Yes Vitals/I&O/Wt Last Vital Signs Temp 98.6 F 05/25/21 15:35 Pulse 107 H 05/25/21 15:35 Resp 25 H 05/25/21 15:50 BP 91/61 05/25/21 15:35 Pulse Ox 70 L 05/25/21 15:35 05/25/21 05/25/21 05/25/21 06:59 14:59 22:59 Intake Total 95.86 / 1764.123 Output Total 300 / 950 500 / 500 Balance -204.14 / 814.123 -500 / -500 Physical Exam Narrative: EXAM NARRATIVE: General: Chronically sick appearing, no acute distress, drowsy but arousable AO x1-2, no agitation Bilateral bronchial breath sounds, HEENT: PERRLA, pupils bilaterally equal and reactive Chest: Bilateral rhonchi, crackles present on the lung neal, equal good air entry bilaterally CVS: S1-S2 regular, no murmurs, no tachycardia, no gallops, no rubs Abdomen: Soft, nontender, no organomegaly, bowel sounds present Neuro: Pupils bilaterally equal reactive, patient drowsy but arousable, maintaining airway on heated high flow Const: COMMON NORMALS: no acute distress GENERAL APPEARANCE: comfortable OTHER: Further exam deferred because of comfort care status. Urinary Catheter Management^: Bradley: Cath Placed During This Visit: yes Reason for Continuing Indwelling Catheter: Accurate Measurement of Urinary Output in Critically Ill Patients Urinary Catheter Date of Insertion: 05/18/21 Urinary Catheter Time of Insertion: 13:33 Data : 05/24/21 05:02 05/24/21 05:02 A&P Assessment and plan (1) Septic shock: Status: Acute (2) Acute respiratory distress syndrome (ARDS) due to severe acute respiratory syndrome coronavirus 2 (SARS-CoV-2): Status: Acute (3) Hypernatremia: Status: Acute (4) Elevated CPK: I.V Hydration Monitor CPK Status: Acute (5) COPD (chronic obstructive pulmonary disease): Status: Acute (6) Dehydration: Status: Acute (7) Elevated lactic acid level: Likely secondary dehydration resolved. Status: Acute (8) Acute kidney injury superimposed on chronic kidney disease: Resolved. Present on admission most likely secondary dehydration. Medical reconciliation done for nephrotoxic drugs. For now continue to monitor BMP daily. Status: Acute (9) Metabolic acidosis: Status: Acute (10) Comfort measures only status: Status: Acute Additional A&P Information ARDS secondary to COVID-19 pneumonia: Moderate to severe disease. Continue oxygen supplementation keeping saturation 88 to 90%. Post 1 dose of Actemra. Finished course of remdesivir for 5 days Dexamethasone 6 mg IV daily. Vitamin C, zinc. DuoNebs every 4 hour, budesonide twice daily. Pulmonary toilet with incentive spirometry and Acapella when able. Given multiple goals of care discussion with patient's DPOA Ms. Kimberley Thompson and patient's self goals of care of no aggressive treatment with no ventilator support, no BiPAP support no ABG because patient continued to have persistent hypoxia with saturation will down to 60s with minimal ambulation family decided patient to be comfort measures only. Patient has been transitioned to comfort measures only. Ativan, morphine as needed as per the comfort measure protocol. Succinylcholine/glycopyrrolate for secretions. No further blood work. Stop dexamethasone, antibiotics, remdesivir. Can continue with inhalation treatment and minimal oxygen support keeping p atient comfortable. Transfer to [facility]. Attestations Medical Necessity Statement*: Requires further hospitalization for comfort measure status goals of care only while safe and comfortable discharge planning is sought. Time Spent in Patient Care: 16 - 35 minutes Coding Level of Care Code Acute Seater Grinder for g Fwd Diagnoses Septic shock A41.9; R65.21 Acute respiratory distress syndrome (ARDS) due to severe acute respiratory syndrome coronavirus 2 (SARS-CoV-2) U07.1; J80 Hypernatremia E87.0 Elevated CPK R74.8 COPD (chronic obstructive pulmonary disease) J44.9 Dehydration E86.0 Elevated lactic acid level R79.89 Acute kidney injury superimposed on chronic kidney disease N17.9; N18.9 Metabolic acidosis E87.2 Comfort measures only status Z51.5
[2021-05-26] VITALS (14 sets, daily range): BP systolic 95–98; BP diastolic 58–64; PULSE 119–127; RESP 20–58; TEMP 36.8; O2SAT 73–85
[2021-05-26] MEDS: morphine 10 mg/0.5 mL oral liq UD SUBLINGUAL ×2 (01:19→05:51)
[2021-05-26] MEDS: LORazepam 2 mg/mL INJ 1 mL IVP ×9 (01:20→16:56)
[2021-05-26] MEDS: morphine 4 mg/mL SDV 1 mL IVP ×9 (09:22→16:56)
--- NOTE | 2021-05-26 17:16 | PC.NURSE ---
patient passed at 1707, sister Kimberley Ibrahim notified, [facility] in [place] will be notified after cleared from [facility]. hot dip tinning supervisor and Dr. Pace notified.
--- NOTE | 2021-05-26 17:43 | PM.DDS ---
Discharge Providers DDS Date of Admission: 05/18/21 10:47 Date Summary Completed: 05/26/21 Attending Provider at Admission: Ross Hawk MD Time of : 17:07 Attending Provider at Discharge: Jermain Pace MD DS Diagnoses Hospital Diagnoses (1) Septic shock: (2) Acute respiratory distress syndrome (ARDS) due to severe acute respiratory syndrome coronavirus 2 (SARS-CoV-2): (3) Hypernatremia: (4) Elevated CPK: (5) COPD (chronic obstructive pulmonary disease): (6) Dehydration: (7) Elevated lactic acid level: (8) Acute kidney injury superimposed on chronic kidney disease: (9) Metabolic acidosis: (10) Comfort measures only status: Reason for Visit Reason for Visit: lying in floor/ respiratory distress Summary Date and Time of Date of : 05/26/21 Time of : 17:07 Summary Summary: Logan Wei is a 60 year old male who does not follow-up with doctors with remote past medical history of possible COPD was brought in by by the EMS in severe respiratory distress he was found lying on the floor in his house.When the EMS arrived at the scene he was saturating 64 % on Room air, he was confused and disoriented.Upon arrival in the ER he was worked up for above mention complain. Imaging Studies: CTA chest : NO P/E. Diffuse bilateral hazy ground glass infiltrates. Advanced chronic emphysematous changes. Pertinent labs: WBC : 17.7 T , H/H :18/56 PLT : 316 , Na: 147, k : 4.4 , BUN/SCR : 52/1.6 , Lactic acid: 3.4 , M.4, CPK:633 ,Lipase :105 ABG: Ph: 7.48,PCO2: 25, PO2: 59 FIO2: NRM 15LS He is into the hospital for further management of hypoxic respiratory failure secondary COVID-19 pneumonia. He was started on treatment with IV remdesivir, IV dexamethasone, relation treatment. On admission he was also found. His hospital stay was complicated by him having episodes of agitation which were at start treated with IV Precedex and sedation medications. Patient continued to have occasional episodes of agitation. Goals of care discussion were done with patient's family and they stated that patient does not want any aggressive medical management including ABG, BiPAP, chest compression for mechanical ventilation. Patient continued to have occasional episode of agitation along with respiratory distress with saturations running down to 60s not recovering with nonrebreather and heated high flow. Given patient's own goals of care of no aggressive treatment, no BiPAP or ventilator support further goals of care discussions were done and patient was transitioned over to comfort care measures only. While patient was being treated for comfort measures only status he on May 26 at 1507. He was comfortable again. Additional Data Confirmation of as documented by pronouncing clinician: no pulse and no respirations Family: contacted Additional persons at bedside: nursing staff Attending/PCP notified?: I am attending Was code activated?: No Autopsy requested?: No Advance directives?: No Hospice patient?: Yes Discharge Plan Discharge Patient Disposition: Condition: Stable Prescriptions: No Action No Known Home Medications RF: 0 Patient Instructions: Opioid Safety DS Attestations Time Spent in /Discharge Care*: greater than 30 min Quality - AMI: AMI present?: No Quality - Stroke: CVA present?: No Symptom Onset Unknown: No Quality - VTE: VTE present?: No Deep Vein Thrombosis/Pulmonary Embolism Present on Admission: No Coding Level of Care Code Acute Vacuum Drum Drier Operator for [facility] Fwd Diagnoses Septic shock A41.9; R65.21 Acute respiratory distress syndrome (ARDS) due to severe acute respiratory syndrome coronavirus 2 (SARS-CoV-2) U07.1; J80 Hypernatremia E87.0 Elevated CPK R74.8 COPD (chronic obstructive pulmonary disease) J44.9 Dehydration E86.0 Elevated lactic acid level R79.89 Acute kidney injury superimposed on chronic kidney disease N17.9; N18.9 Metabolic acidosis E87.2 Comfort measures only status Z51.5
--- NOTE | 2021-05-26 19:15 | PC.NURSE ---
[facility] notified.
--- NOTE | 2021-05-31 17:07 | PM.PN ---
Subjective Subjective: Interval history: Patient was seen and examined this morning,continue to require high supplemental oxygen through [facility] Continue to be require precedex, ativan and morphine to be in compliant with [facility]. Medications: Reviewed: Yes Vitals/I&O/Wt Last Vital Signs Temp 98.3 F 05/26/21 08:11 Pulse 119 H 05/26/21 08:11 Resp 20 H 05/26/21 16:56 BP 98/58 05/26/21 14:00 Pulse Ox 85 L 05/26/21 08:11 Physical Exam Const: COMMON NORMALS: patient oriented x3 HENMT: COMMON NORMALS: normocephalic and atraumatic HEAD & SCALP: normocephalic and atraumatic Resp: OTHER: Diminished air entry b/l Cardio: COMMON NORMALS: regular rate, regular rhythm, S1 normal heart sound present, S2 normal heart sound present, No gallops present (Cardio), No murmurs present (Cardio), No rub (Cardio) and Peripheral pulses 2+ throughout RATE: regular rate RHYTHM: regular rhythm HEART SOUNDS: S1 normal heart sound present and S2 normal heart sound present PERIPHERAL PULSES: Peripheral pulses 2+ throughout GI: COMMON NORMALS: Normal to inspection, nondistended, normoactive bowel sounds present, Soft to palpation, non-tender, No hepatosplenomegaly present and no masses AUSCULTATION: Yes normoactive bowel sounds PALPATION: Yes Soft to palpation and Yes No hepatosplenomegaly present RECTAL EXAM: Yes deferred Extremity: COMMON NORMALS: no clubbing, cyanosis or edema and no pedal edema Neuro: COMMON NORMALS: patient oriented x3 Urinary Catheter Management^: Bradley: Cath Placed During This Visit: yes Reason for Continuing Indwelling Catheter: Accurate Measurement of Urinary Output in Critically Ill Patients Urinary Catheter Date of Insertion: 05/18/21 Urinary Catheter Time of Insertion: 13:33 Data : 05/24/21 05:02 05/24/21 05:02 A&P Assessment and plan (1) Acute respiratory distress syndrome (ARDS) due to severe acute respiratory syndrome coronavirus 2 (SARS-CoV-2): Status: Acute (2) Hypernatremia: Status: Acute (3) Elevated CPK: I.V Hydration Monitor CPK Status: Acute (4) COPD (chronic obstructive pulmonary disease): Status: Acute (5) Dehydration: Status: Acute (6) Elevated lactic acid level: Likely secondary dehydration resolved. Status: Acute (7) Acute kidney injury superimposed on chronic kidney disease: Resolved. Present on admission most likely secondary dehydration. Medical reconciliation done for nephrotoxic drugs. For now continue to monitor BMP daily. Status: Acute Additional A&P Information Acute hypoxic respiratory failure secondary to severe ARDS secondary to Covid pneumonia: CTA Negative for P/E . Xray chest :Worsening b/l air space disease. D-Dimer: ESR: CRP: Ferittin : Fibrinogen: Procalcitonin : Blood Culture: ABG : 5 days course of Remdesivir 200 mg IV x 1, then 100 mg IV daily x 4 day. Dexamaethasone 10 days course On Cef And Azithromycin S/P 1 Dose of Tocilizumab On Lovenox 40 mg sc daily Morphine 2 mg I.V Q4H PRN Ativan 2 mg I.V Q4H PRN On Precedex Drip On [facility] as tolerated 2: Respiratory failure with hypoxia: Ac hypoxic r/f 2/2 COVID PNA On COVID Protocol. 3. Pneumonia due to COVID-19 virus: Plan as above 4. Acute kidney injury superimposed on chronic kidney disease: Pre renal NOREEN ON CKD 2/2 Severe dehydration . Admission SCR: 1.6 Baseline SCR is unknown I.V Hydration Monitor BMP Urine electrolytes Avoid Nephrotoxics 5.Hypernatremia: Hypovolemic hypernatremia: D5 water at 75 cc an hour Monitor BMP 6. Elevated CPK: I.V Hydration Monitor CPK (7) Metabolic acidosis: Status: Acute (8) Elevated lactic acid level: Likely secondary dehydration resolved. Status: Acute (9) COPD (chronic obstructive pulmonary disease): Status: Acute (10) Dehydration: Status: Acute (11) Hypermagnesemia: Follow serum magnesium Status: Acute (12) Tachycardia: Sinus tachycardia Continue telemetry monitoring Attestations Medical Necessity Statement*: Patient needs to be in hospital for the management of COVID PNA Coding Level of Care Code Acute [employer] [facility] Diagnoses Acute respiratory distress syndrome (ARDS) due to severe acute respiratory syndrome coronavirus 2 (SARS-CoV-2) U07.1; J80 Hypernatremia E87.0 Elevated CPK R74.8 COPD (chronic obstructive pulmonary disease) J44.9 Dehydration E86.0 Elevated lactic acid level R79.89 Acute kidney injury superimposed on chronic kidney disease N17.9; N18.9
== END 2021-05-26 20:15 | disposition expired | DRG 177 ==
LOC: ER 10:35 → MEDSURG 13:26 → ICU 05-20 14:49 → MEDSURG 05-25 13:10
PROVIDERS: Admitting Provider Internal Medicine; Emergency Provider Family Medicine; Visit Provider Student in an Organized Health Care Education/Training Program
DX: U07.1 COVID-19 (principal); A41.9 Sepsis, unspecified organism; R65.21 Severe sepsis with septic shock; J12.82 Pneumonia due to coronavirus disease 2019; J80 Acute respiratory distress syndrome; G93.41 Metabolic encephalopathy; N17.9 Acute kidney failure, unspecified; E87.2 Acidosis; E87.0 Hyperosmolality and hypernatremia; J44.9 Chronic obstructive pulmonary disease, unspecified; N18.9 Chronic kidney disease, unspecified; E86.0 Dehydration; E83.41 Hypermagnesemia; R00.0 Tachycardia, unspecified; Z66 Do not resuscitate; I95.9 Hypotension, unspecified; Z51.5 Encounter for palliative care
CPT/HCPCS: 36415; 36600; 51702; 71045; 71275; 76700; 80048; 80051; 80053; 80202; 81001; 82330; 82550; 82728; 82805; 83036; 83540; 83550; 83605; 83690; 83735; 83880; 84145; 84443; 85025; 85378; 85384; 85610; 85651; 86140; 86403; 87040; 87426; 87449; 87635; 87641; 93005; 93306; 94640; 94660; 94762; 96365; 96367; 96372; 96375; 99291; J0456; J0696; J1100; J1630; J1650; J1940; J1956; J2060; J2270; J2543; J2930; J3262; J3370; J7030; J7050; J7626; J7799; Q9967